=== PATIENT | male | born 1995 | race African-American/Black ===

== ENCOUNTER 2020-10-28 11:12 | Emergency (ER) | payer OTHER, SELFPAY ==
[2020-10-28 11:41] VITALS: BP 109/72; PULSE 76; RESP 18; TEMP 36.8; O2SAT 98; BMI 24.7
--- NOTE | 2020-10-28 12:49 | ED.GENADULT ---
HPI - General Adult General Chief complaint: General Medical Stated complaint: nausea Time Seen by Provider: 10/28/20 12:49 History of Present Illness HPI narrative: Patient complains of feeling anxious this morning and he felt a little nauseous with the mild headache that came on gradually and was not severe now he has no headache, no nausea and says he has been going through stressful situations as he from the mother of his 2 children, no suicidal or homicidal thoughts not hearing voices does not want harm himself, there is no abdominal pain no diarrhea no dysuria Related Data Previous Rx's Medication Instructions Recorded hydroxyzine HCl 25 mg tablet 25 mg PO TID PRN #14 tab 10/28/20 Allergies Allergy/AdvReac Type Severity Reaction Status Date / Time cat dander [CAT] Allergy Unknown PIMPLES Verified 10/28/20 11:40 dog dander [DOG] Allergy Unknown PIMPLES Unverified 11/28/19 16:57 SEASONAL ALLERGIES Allergy Unknown ITCHY EYES Uncoded 11/28/19 16:57 Review of Systems Review of Systems: Positive for anxiety, nausea and headache negatives are no fever no chills no dizziness no weakness no abrupt onset headache no vision change no photophobia no neck pain no stiff neck no cough no shortness of breath no sore throat no chest pain no abdominal pain no diarrhea no dysuria Yes all other systems are reviewed and are negative PMFSH Past Medical History Source: nursing notes reviewed Medical History (Updated 10/28/20 @ 12:54 by GILBERTO Reaevs) Asthma Social History Social History Advance Directives: No Advance Directives Information Provided: No Physical Exam Vital Signs: Vital Signs: Last Vital Signs Temp 98.3 F 10/28/20 11:41 Pulse 76 10/28/20 11:41 Resp 18 10/28/20 11:41 BP 109/72 10/28/20 11:41 Pulse Ox 98 10/28/20 11:41 Body Mass Index 24.7 General appearance is no acute distress Head is normocephalic atraumatic Pupils equal round reactive to light Extraocular motions are intact The neck is supple The pharynx is clear and well hydrated The chest is clear to auscultation bilateral no respiratory distress Heart no murmur Abdomen soft nontender Extremities full range of motion x4 Skin no rash Course Course Course Narrative: Patient's headache has resolved, he was able to tolerate p.o. here with no nausea or vomiting and for his anxiety I wrote a prescription for Atarax and recommended he follow with primary care doctor for possible regular treatment for anxiety Discharge Plan Discharge Clinical Impression: Anxiety Patient Disposition: Home, Self-Care Additional Instructions: You can use Atarax as needed for anxiety and it is okay if you are having trouble sleeping to double the dose at night and take 2 of them 50 mg Follow with primary doctor as there are other medications that are preventatives for anxiety Return to the ER any time for any worse condition or any concerns Prescriptions: New hydroxyzine HCl 25 mg tablet 25 mg PO TID PRN (Reason: anxiety) Qty: 14 RF: 0 Stand Alone Forms: Work/School Release
--- NOTE | 2020-10-28 13:01 | PC.NURSE ---
PT AWAKE, ALERT AND ORIENTED X 3. AMBULATORY INTO [facility], GAIT STEADY. SKIN WARM AND DRY. RESP UNLABORED. NO VOMITING NOTED PRESENTLY. TOLERATED PO WITHOUT DIFFICULTY. EVALUATED BY PROVIDER UPON ARRIVAL TO [facility] BED. GILBERTO BARTON DISCUSSED PLAN OF CARE WITH PATIENT AND PATIENT AGREEABLE. PLAN IS FOR DC HOME WIHT SCRIPT. PT TEXTING ON PHONE THROUGHOUT STAY. NO DISTRESS NOTED
== END 2020-10-28 13:04 | disposition home or self-care (01) ==
PROVIDERS: Emergency Provider Emergency Medicine; PCP Internal Medicine
DX: F41.1 Generalized anxiety disorder (principal); F43.0 Acute stress reaction; Z79.899 Other long term (current) drug therapy
CPT/HCPCS: 99283

== ENCOUNTER 2021-03-21 14:15 | Emergency (ER) | payer OTHER, SELFPAY ==
--- NOTE | ~2021-03-21 | XR_ITS ---
EXAMINATION: XR CHEST CLINICAL INFORMATION: SOB. COMPARISON: None TECHNIQUE: 2 views of the chest were obtained. FINDINGS: No significant abnormality is noted involving the heart, lungs, mediastinum, bony thorax or soft tissues. XR/XR chest 2V IMPRESSION: Unremarkable chest examination.
[2021-03-21 14:57] VITALS: BP 135/71; PULSE 90; RESP 18; TEMP 36.6; O2SAT 98; BMI 23.0
[2021-03-21 15:15] LABS: COVID-19 Test Positive (Negative)
--- NOTE | 2021-03-21 16:35 | ED.URI ---
HPI - URI/Sore Throat General Chief Complaint: Upper Respiratory Symptoms Stated Complaint: headache/cough Time Seen by Provider: 03/21/21 16:24 Source: patient Mode of arrival: ambulatory Limitations: no limitations History of Present Illness HPI Narrative: 25-year-old male with a past medical of his asthma presenting to the ED with COVID like symptoms that started at 03:00 which include subjective fevers, chills, sweats, intermittent headaches, sore throat, productive cough with clear color sputum, chest tightness and lower back pain. Denies recent travel or sick contacts. Reports he is not vaccinated to COVID. Reports that he works at [employer]. Denies any measured fevers, dizziness, neck pain/stiffness, trouble swallowing or breathing, dyspnea on exertion, orthopnea, palpitations, chest pain, nausea/vomiting/diarrhea constipation, abdominal pain, dysuria, hematuria, abnormal penile discharge, black or bloody stools, saddle anesthesias, weakness, urinary bowel incontinence or retention, IV drug use or any other symptoms complaints or concerns at this time. MD elicited complaint: cough, rhinorrhea and nasal congestion Onset (ago): day(s) (Since last night 03:00) Consistency: constant and progressively worsening Severity: mild Description of mucous: clear Able to tolerate fluids by mouth: Yes Exacerbating factors: nothing Relieving factors: nothing Associated symptoms: chills, myalgias, diaphoresis, headache, sore throat and cough Treatments prior to arrival: none Related Data Previous Rx's Medication Instructions Recorded hydroxyzine HCl 25 mg tablet 25 mg PO TID PRN #14 tab 10/28/20 albuterol sulfate 90 mcg/actuation 1 inh INHALATION QID PRN #8.5 g 03/21/21 aerosol inhaler azithromycin 250 mg tablet See Rx Instructions .ROUTE 03/21/21 .COMPLEX #6 tab codeine 10 mg-guaifenesin 100 mg/5 5 ml PO Q6H PRN #120 ml 03/21/21 mL oral liquid (Guaifenesin AC) prednisone 20 mg tablet 40 mg PO DAILY 5 Days #10 tab 03/21/21 Allergies Allergy/AdvReac Type Severity Reaction Status Date / Time cat dander [CAT] Allergy Unknown PIMPLES Verified 10/28/20 11:40 dog dander [DOG] Allergy Unknown PIMPLES Unverified 11/28/19 16:57 SEASONAL ALLERGIES Allergy Unknown ITCHY EYES Uncoded 11/28/19 16:57 Review of Systems Review of Systems: Constitutional : Positive subjective fever/chills/fatigue/malaise/sweats, No Weight loss ENT/Mouth : Positive sore throat, No Hearing loss, No Ear Pain, No Nasal Congestion, No Sinus Pain, No Hoarseness, No Rhinorrhea, No Swallowing Difficulty Eyes: No Eye Pain, No Swelling, No Redness, No Foreign Body, No Discharge, No Vision Changes Cardiovascular : No Chest Pain, No SOB, No Dyspnea on Exertion, No Orthopnea, No Edema, No Palpitations Respiratory : Positive Cough, positive Sputum, No Wheezing, No Smoke Exposure, No Dyspnea Gastrointestinal : No Nausea, No Vomiting, No Diarrhea, No Constipation, No abdominal Pain, No Hematochezia, No Melena Genitourinary : no irregular bleeding, No Dysuria, No Urinary Frequency, No Hematuria, No Urinary Incontinence, No Urgency, No Flank Pain, No Urinary Flow Changes, No Hesitancy Musculoskeletal : No joint pain, positive Myalgias, No Joint Swelling Skin : No Skin Lesions, No rash Neuro : No Weakness, No Numbness, No Paresthesias, No Loss of Consciousness, No Dizziness, No Headache Psych : No Anxiety/Panic, No Depression, No SI/HI/AH/VH, No Social Issues, Heme/Lymph: No Bruising, No Bleeding,No Lymphadenopathy Endocrine : No Polyuria, No Polydipsia, No Temperature Intolerance Yes all other systems are reviewed and are negative [facility] Past Medical History Attestation statement: The following information was validated with the patient. Medical History Asthma Physical Exam Vital Signs: Vital Signs: Last Vital Signs Temp 97.9 F 03/21/21 14:57 Pulse 90 03/21/21 14:57 Resp 18 03/21/21 14:57 BP 135/71 03/21/21 14:57 Pulse Ox 98 03/21/21 14:57 BMI result Body Mass Index 23.0 vital signs have been reviewed as normal and appeared to be correct. Blood pressure normal. Heart rate normal. Respiration rate normal. Temperature normal. Oxygen saturation normal. Appearance: Alert. Oriented X3. No acute distress. Head: Normal external exam. Normocephalic. Atraumatic. Eyes: PERRLA. EOMI. Conjunctiva and sclera normal. Eyelids normal. ENT: EAC normal. TM's Normal. Pharynx normal. Uvula midline. Moist mucous membranes. No trismus noted. No drooling noted. No muffled voice noted. Neck: Normal inspection. Neck supple. FROM. No adenopathy. Thyroid Normal. No meningeal signs. No neck mass noted. CVS: Normal heart rate and rhythm. Heart sound normal. Pulses normal throughout. No murmurs/rales/gallops. Respiratory: No respiratory distress. Painless inspiration. Breath sounds normal. No wheezes/rales/rhonchi noted. Chest nontender. No accessory muscle usage noted or decreased air movement noted. Abdomen: Soft and nontender. Bowel sounds normal in all 4 quadrants. No distention noted. No organomegaly noted. No visible injury noted. Back: No CVA tenderness. Full range of motion noted. No rashes/lesion/induration/fluctuance or signs of infection noted. Skin: Skin warm and dry. Normal skin color. Normal skin turgor. No rashes/lesions/lacerations noted. Extremities: No lower extremity edema. No calf tenderness noted. Extremities exhibit normal range of motion. Extremities nontender. Neuro: Oriented X 3. No motor deficit. No sensory deficit. Reflexes normal. Normal steady gait. No focal neuro deficits noted. Vascular: + radial pulses/+ 2 distal pedal pulses/+2 dorsalis pedis b/l. Normal cap refill. No cyanosis noted to upper extremity nails and lower extremity toes nails. Course Course Course Narrative: 25-year-old male with a past medical of his asthma presenting to the ED with COVID like symptoms that started at 03:00 which include subjective fevers, chills, sweats, intermittent headaches, sore throat, productive cough with clear color sputum, chest tightness and lower back pain. Denies recent travel or sick contacts. Reports he is not vaccinated to COVID. Reports that he works at [employer]. Denies any measured fevers, dizziness, neck pain/stiffness, trouble swallowing or breathing, dyspnea on exertion, orthopnea, palpitations, chest pain, nausea/vomiting/diarrhea constipation, abdominal pain, dysuria, hematuria, abnormal penile discharge, black or bloody stools, saddle anesthesias, weakness, urinary bowel incontinence or retention, IV drug use or any other symptoms complaints or concerns at this time. Patient positive for COVID. Negative for pneumonia. Lungs are clear to auscultation. No additional labs or imaging indicated at this time. Will DC home with symptomatic treatment instructions to self isolate per CDC guidelines return if any new or worsening symptoms to follow up with primary care provider. Patient understands agrees with this plan. MDM - URI/Sore Throat Medical Records Attestation: I reviewed the patient's medical records. Lab Data Attestation: I reviewed the patient's lab results. Labs: Lab Results 03/21/21 Range/Units 15:02 COVID-19 (DEBBIE) Positive A (Negative) COVID-19 Clin Com See Note Imaging Data Chest x-ray: Attestation: I personally reviewed and interpreted this imaging study as follows: Radiologist's impression: FINDINGS: No significant abnormality is noted involving the heart, lungs, mediastinum, bony thorax or soft tissues. XR/XR chest 2V IMPRESSION: Unremarkable chest examination. Discharge Plan Discharge Clinical Impression: COVID-19 Patient Disposition: Home, Self-Care Instructions: COVID-19 (Coronavirus Disease 2019) (ED) Additional Instructions: Please follow CDC guidelines for COVID 19 restrictions/quarantine Prescriptions: New albuterol sulfate 90 mcg/actuation HFA aerosol inhaler 1 inh inhalation QID PRN (Reason: shortness of breath or wheezing) Qty: 8.5 RF: 0 azithromycin 250 mg tablet See Rx Instructions .ROUTE .COMPLEX Qty: 6 RF: 0 codeine-guaifenesin [Guaifenesin AC] 10-100 mg/5 mL liquid 5 ml PO Q6H PRN (Reason: cold symptoms) Qty: 120 RF: 0 prednisone 20 mg tablet 40 mg PO DAILY 5 Days Qty: 10 RF: 0 No Action hydroxyzine HCl 25 mg tablet 25 mg PO TID PRN (Reason: anxiety) Qty: 14 RF: 0 Referrals: Freddy Stevenson MD [Primary Care Provider] - 2 days Stand Alone Forms: Work/School Release Print Language: Bahamian
== END 2021-03-21 17:11 | disposition home or self-care (01) ==
LOC: HO.ED 16:46
PROVIDERS: Emergency Provider Emergency Medicine; PCP Internal Medicine
DX: U07.1 COVID-19 (principal); J45.909 Unspecified asthma, uncomplicated; R50.9 Fever, unspecified; M79.10 Myalgia, unspecified site
CPT/HCPCS: 71046; 87635; 99283

== ENCOUNTER 2021-08-16 07:18 | Emergency (ER) | payer OTHER, SELFPAY ==
--- NOTE | ~2021-08-16 | XR_ITS ---
EXAMINATION: XR CHEST CLINICAL INFORMATION: Shortness of breath COMPARISON: Chest x-ray 03/21/2021 TECHNIQUE: Frontal view of the chest was obtained. FINDINGS: Cardiac silhouette is normal in size. The lungs are well aerated. There is no lobar consolidation. No pleural effusion or pneumothorax. No gross osseous abnormality. XR/XR chest 1V IMPRESSION: No acute pulmonary pathology.
[2021-08-16 07:20] VITALS: BP 119/76; PULSE 72; RESP 18; TEMP 36.6; O2SAT 96; BMI 21.9
[2021-08-16 07:50] LABS: COVID-19 Test Negative (Negative); IDNOW Serial# 9DB6401D; Influenza A Negative (Negative); Influenza B2 Negative (Negative)
--- NOTE | 2021-08-16 08:05 | ED.ASTHMA ---
HPI - Asthma General Chief Complaint: Upper Respiratory Symptoms Stated Complaint: difficulty breathing Time Seen by Provider: 08/16/21 08:05 Source: patient Mode of arrival: ambulatory History of Present Illness HPI Narrative: 25-year-old male with history of asthma comes in for increasing shortness of breath and chest tightness and stating that he has run out of his medication. He denies having of primary care provider and denies any associated fever, chills, sore throat. Related Data Previous Rx's Medication Instructions Recorded hydroxyzine HCl 25 mg tablet 25 mg PO TID PRN #14 tab 10/28/20 albuterol sulfate 90 mcg/actuation 1 inh INHALATION QID PRN #8.5 g 03/21/21 aerosol inhaler azithromycin 250 mg tablet See Rx Instructions .ROUTE 03/21/21 .COMPLEX #6 tab codeine 10 mg-guaifenesin 100 mg/5 5 ml PO Q6H PRN #120 ml 03/21/21 mL oral liquid (Guaifenesin AC) prednisone 20 mg tablet 40 mg PO DAILY 5 Days #10 tab 03/21/21 albuterol sulfate 90 mcg/actuation 2 puff INHALATION Q4-6H PRN #8.5 g 08/16/21 aerosol inhaler (Ventolin HFA) prednisone 50 mg tablet 50 mg PO DAILY 4 Days #4 tab 08/16/21 Allergies Allergy/AdvReac Type Severity Reaction Status Date / Time cat dander [CAT] Allergy Unknown PIMPLES Verified 10/28/20 11:40 dog dander [DOG] Allergy Unknown PIMPLES Unverified 11/28/19 16:57 SEASONAL ALLERGIES Allergy Unknown ITCHY EYES Uncoded 11/28/19 16:57 Review of Systems Review of Systems: Pertinent positives and negatives as stated in HPI 10 point review of systems is otherwise negative. [facility] Past Medical History Source: nursing notes reviewed Medical History Asthma Social History Social History Advance Directives: No Advance Directives Information Provided: No Physical Exam Vital Signs: Vital Signs: Last Vital Signs Temp 97.9 F 08/16/21 07:20 Pulse 72 08/16/21 07:20 Resp 18 08/16/21 07:20 BP 119/76 08/16/21 07:20 Pulse Ox 96 08/16/21 07:20 BMI result Body Mass Index 21.9 VITAL SIGNS: Reviewed. GENERAL: Well developed, well nourished, in no acute distress. HEAD: Normocephalic/atraumatic EYES: PERRLA, EOMI EARS: Ext canals without abnormality, TMs non-bulging and non-erythematous NOSE: Nares patent bilateral OROPHARYNX: no oral lesions noted, posterior pharynx clear and non-erythematous without noted tonsillar enlargement/erythema/exudates NECK: Supple, no adenopathy LUNGS: Normal breath sounds, no significant expiratory wheeze, no tachypnea. SpO2<96> CARDIOVASCULAR: Regular rate and rhythm without noted murmurs ABDOMEN: Soft, non-tender, non-distended with bowel sounds. MUSCULOSKELETAL: No tenderness, deformities, or effusions noted on gross inspection. EXTREMITIES: No cyanosis, clubbing or edema. SKIN: Inspection of the skin reveals no rashes NEUROLOGIC: Alert and oriented x 4. Strength and sensation to light touch were grossly intact x 4. Course Course Course Narrative: 25-year-old male with history and clinical presentation consistent with minimal asthma exacerbation, no expiratory wheeze noted with good auscultated breath sounds, no tachypnea or increased work of breathing patient will receive albuterol inhaler as well as starting on a short course of steroids. Review of all investigations is otherwise negative. MDM - Asthma Lab Data Labs: Lab Results 08/16/21 08/16/21 Range/Units 07:26 07:26 COVID-19 (DEBBIE) Negative (Negative) COVID-19 Clin Com See Note Influenza Type A (ORAL) Negative (Negative) Influenza Type B (ORAL) Negative (Negative) Influenza A & B Note See Note Discharge Plan Discharge Clinical Impression: Asthma Patient Disposition: Home, Self-Care Instructions: Asthma (ED) Additional Instructions: 1. Increase use of your albuterol inhaler over the next 24 hours in complete the course of steroids that you have been prescribed. 2. Try to limit the amount marijuana inhalation during the times at your asthma is especially bothersome. 3. Additional medication has been sent to your pharmacy, but you should establish care with a primary care provider. Return to the ER for worsening symptoms. Prescriptions: New albuterol sulfate [Ventolin HFA] 90 mcg/actuation HFA aerosol inhaler 2 puff inhalation Q4-6H PRN (Reason: shortness of breath or wheezing) Qty: 8.5 0RF prednisone 50 mg tablet 50 mg PO DAILY 4 Days Qty: 4 0RF No Action hydroxyzine HCl 25 mg tablet 25 mg PO TID PRN (Reason: anxiety) Qty: 14 0RF Rx Instructions: This medication may cause drowsiness or use with caution albuterol sulfate 90 mcg/actuation HFA aerosol inhaler 1 inh inhalation QID PRN (Reason: shortness of breath or wheezing) Qty: 8.5 0RF azithromycin 250 mg tablet See Rx Instructions .ROUTE .COMPLEX Qty: 6 0RF Rx Instructions: take 500 mg today (day 1), then 250 mg for 4 days (days 2-5) codeine-guaifenesin [Guaifenesin AC] 10-100 mg/5 mL liquid 5 ml PO Q6H PRN (Reason: cold symptoms) Qty: 120 0RF prednisone 20 mg tablet 40 mg PO DAILY 5 Days Qty: 10 0RF Referrals: Freddy Stevenson MD [Primary Care Provider] -
[2021-08-16] MEDS: predniSONE 10 MG TABLET 50 MG PO (08:36)
[2021-08-16] MEDS: Albuterol Sulfate 90 MCG 8 GM INHALER 4 PUFF INHALE (08:37)
== END 2021-08-16 08:41 | disposition home or self-care (01) ==
PROVIDERS: Emergency Provider Student in an Organized Health Care Education/Training Program; PCP Internal Medicine
DX: J45.909 Unspecified asthma, uncomplicated (principal); Z20.822 Contact with and (suspected) exposure to COVID-19
CPT/HCPCS: 71045; 87502; 87635; 99282; 99283

== ENCOUNTER 2021-09-17 23:18 | Emergency (ER) | payer OTHER, SELFPAY | END 2021-09-18 00:41 | disposition left against medical advice (07) | PROVIDERS: Emergency Provider Emergency Medicine; PCP Internal Medicine | DX: R06.02 Shortness of breath (principal); R07.9 Chest pain, unspecified ==

== ENCOUNTER 2021-11-18 05:22 | Emergency (ER) | payer OTHER, SELFPAY ==
--- NOTE | ~2021-11-18 | XR_ITS ---
EXAMINATION: XR CHEST CLINICAL INFORMATION: Chest pain with inspiration COMPARISON: 08/16/2021 TECHNIQUE: Frontal view of the chest was obtained. FINDINGS: The lungs are well expanded. There is no focal consolidation, edema, or effusion. No pneumothorax. The cardiomediastinal silhouette is within normal limits. No acute osseous abnormality. XR/XR chest 1V IMPRESSION: Clear lungs.
[2021-11-18 05:52] VITALS: BP 143/75; PULSE 89; RESP 18; TEMP 36.7; O2SAT 97; BMI 23.1
[2021-11-18 06:10] VITALS: BP 122/69; PULSE 78; RESP 16; TEMP 36.8; O2SAT 98
[2021-11-18 06:31] LABS: Hematocrit 41.8 % (42.0-52.0); Hemoglobin 13.7 g/dl (14.0-18.0); Mean Corpuscular HGB Conc 32.8 g/dl (31.0-36.0); Mean Corpuscular Hemoglobin 25.9 pg (27.0-33.0); Mean Corpuscular Volume 79.2 fL (80.0-98.0); Mean Platelet Volume 10.3 fL (9.4-12.4); Platelet Count 247 X10*3/uL (160-400); Red Blood Count 5.28 X10*6/uL (4.60-5.80); Red Cell Distribution Width 13.5 % (11.0-16.0); White Blood Count 5.5 X10*3/uL (4.8-10.8)
[2021-11-18 06:38] VITALS: PULSE 79
[2021-11-18 06:40] LABS: COVID-19 Test Negative (Negative); IDNOW Serial# 16C4AD1C
[2021-11-18 06:55] LABS: Troponin-I High Sensitivity < 3.5 ng/L (<3.5-35.0)
[2021-11-18 06:56] LABS: Alanine Aminotransferase 15 U/L (0-40); Albumin Level 4.1 g/dL (3.5-5.0); Alkaline Phosphatase 49 U/L (39-117); Anion Gap 14 (12-20); Aspartate Amino Transferase 16 U/L (5-37); Bilirubin Total 0.2 mg/dL (0.0-1.0); Blood Urea Nitrogen 16 mg/dL (9-16); Calcium 9.1 mg/dL (8.4-10.2); Carbon Dioxide 23 mmol/L (22-29); Chloride 109 mmol/L (96-108); Creatinine Clr Calc Pharmacy 106.5; Estimated Glomerular Filt Rate > 60; Glucose Random 110 mg/dL (60-115); Potassium 3.7 mmol/L (3.3-5.1); Sodium 142 mmol/L (135-145); Total Protein 6.7 g/dL (6.5-8.0)
[2021-11-18 07:11] VITALS: BP 110/61; PULSE 78; RESP 14; TEMP 36.6; O2SAT 98
--- NOTE | 2021-11-18 07:29 | ED_ITS ---
HPI - URI/Sore Throat General Chief Complaint: Upper Respiratory Symptoms Stated Complaint: Asthma/Chest tightness Time Seen by Provider: 11/18/21 07:19 Source: patient Mode of arrival: ambulatory Limitations: no limitations History of Present Illness HPI Narrative: 26-year-old male who presents emergency department for evaluation of an asthma exacerbation. The patient states that last night around 23:00 hours he developed sharp pain in his chest, shortness of breath and wheezing. He states that he used his albuterol inhaler several times with some improvement but he then ran out of his inhaler. His shortness of breath got worse therefore came to the emergency department. Patient points to his anterior chest when asked to localize the chest pain. He describes as a sharp pain which is worse with breat mehdi. The pain was 8/10 at its worse but is 5/10 at the time my evaluation. The patient denied fever, chills, rhinorrhea, sore throat, cough, nausea, vomiting or diarrhea. Denies myalgias arthralgias. He did take a home COVID-19 test which was negative. MD elicited complaint: other (Chest pain) Pertinent past history: asthma Onset (ago): hour(s) (Onset 23:00 hours (8 hours prior to evaluation)) Consistency: intermittent Severity: severe Pain scale (0-10): 7 Able to tolerate fluids by mouth: Yes Exacerbating factors: deep breaths Relieving factors: nothing Associated symptoms: shortness of breath Treatments prior to arrival: other (Albuterol inhaler) Related Data Previous Rx's Medication Instructions Recorded hydroxyzine HCl 25 mg tablet 25 mg PO TID PRN anxiety #14 tabs 10/28/20 albuterol sulfate 90 mcg/actuation 1 inh inhalation QID PRN shortness 03/21/21 aerosol inhaler of breath or wheezing #8.5 grams azithromycin 250 mg tablet See Rx Instructions PO .COMPLEX #6 03/21/21 tabs codeine 10 mg-guaifenesin 100 mg/5 5 ml PO Q6H PRN cold symptoms #120 03/21/21 mL oral liquid (Guaifenesin AC) mL prednisone 20 mg tablet 40 mg PO DAILY rash 5 days #10 tabs 03/21/21 albuterol sulfate 90 mcg/actuation 2 puff inhalation Q4-6H PRN 08/16/21 aerosol inhaler (Ventolin HFA) shortness of breath or wheezing #8.5 grams prednisone 50 mg tablet 50 mg PO DAILY 4 days #4 tabs 08/16/21 albuterol sulfate 90 mcg/actuation 2 puff inhalation Q4-6H PRN 11/18/21 aerosol inhaler (ProAir HFA) shortness of breath or wheezing #8.5 grams prednisone 20 mg tablet 60 mg PO DAILY 5 days #15 tabs 11/18/21 Allergies Allergy/AdvReac Type Severity Reaction Status Date / Time cat dander [CAT] Allergy Unknown PIMPLES Verified 10/28/20 11:40 dog dander [DOG] Allergy Unknown PIMPLES Unverified 11/28/19 16:57 SEASONAL ALLERGIES Allergy Unknown ITCHY EYES Uncoded 11/28/19 16:57 Review of Systems Review of Systems: Yes all other systems are reviewed and are negative [facility] Past Medical History [facility] Narrative: Social history: The patient smokes 1 pack of cigarettes per day x6 years. He denies drug use. He does drink alcohol he states he was drinking alcohol last night. Medical History Asthma Social History Social History Alcohol intake: current Alcohol intake frequency: a few times a week Patient Tobacco Use Status: Current everyday Tobacco user Use of substances other than those prescribed or required for medical reasons: No Advance Directives: No Advance Directives Information Provided: Yes Physical Exam Vital Signs: Vital Signs: Last Vital Signs Temp 97.9 F 11/18/21 07:11 Pulse 78 11/18/21 07:11 Resp 14 11/18/21 07:11 BP 110/61 11/18/21 07:11 Pulse Ox 98 11/18/21 07:11 O2 Del Method 11/18/21 07:11 BMI result Body Mass Index 23.1 Const: General: cooperative and no acute distress Orientation/consciousness: oriented to person and oriented to place Limitations: no limitations HEENT: Head: Yes normal to inspection, Yes normocephalic and Yes atraumatic Ears: external ears normal General nose exam: Normal external nose present Face and sinus: Yes normal facial exam Mouth: Normal oral and palatal mucosa present Throat: Yes posterior oropharynx normal Eyes: General: appearance normal, both eyes and all related structures Pupils: Equal, round and reactive pupils present Neck: Neck: Yes normal visual inspection, Yes no lymphadenopathy, Yes trachea midline and Yes supple Chest: Chest palpation & inspection: normal inspection of the chest and normal palpation of entire chest wall Resp: Effort & Inspection: normal respiratory effort and able to speak in complete sentences Auscultation: wheezes (Diffuse) Cardio: Rate: regular rate Rhythm: regular rhythm Heart sounds: S1 normal heart sound present, S2 normal heart sound present and no murmurs GI: Inspection: Yes normal to inspection Palpation (GI): Soft to palpation, nontender and no guarding Auscultation: normal bowel sounds : General: Yes no CVA tenderness Back/Spine/Pelvis: Back: no CVA tenderness Skin: General skin exam: no rashes or lesions noted Neuro: General: oriented to person and oriented to place Cranial nerves: Yes CN's II-XII intact bilaterally and Yes Equal, round and reactive pupils present Cognition (Neuro): normal cognition Motor exam (neuro): 5/5 motor strength present throughout Extrem: General: Yes normal to inspection Psych: Appearance: grossly normal Speech and movement: Normal speech and movement present Affect: normal affect Attitude: cooperative Thought process: Normal thought process present Thought content: Normal thought content present Course Course Course Narrative: 26-year-old male who presents emergency department for evaluation of shortness of breath and pleuritic chest pain which began last night at 23:00 hours. The patient's presentation and findings are consistent with an acute asthma exacerbation. Patient did have wheezing on his lung exam and was ordered to get an albuterol nebulizer. He is also ordered to get prednisone 60 mg orally. Patient had a lab included a CBC, CMP and COVID-19 test. These were unremarkable. Chest x-ray was also normal. Patient was given prescription for albuterol inhaler and a 5 day course of prednisone 60 mg once a day. He was given printed and verbal instructions and discharged home. MDM - URI/Sore Throat Lab Data Result diagrams: 11/18/21 06:21 11/18/21 06:21 Labs: Lab Results 11/18/21 11/18/21 11/18/21 Range/Units 06:21 06:21 06:21 WBC 5.5 (4.8-10.8) X10*3/uL RBC 5.28 (4.60-5.80) X10*6/uL Hgb 13.7 L (14.0-18.0) g/dl Hct 41.8 L (42.0-52.0) % MCV 79.2 L (80.0-98.0) fL MCH 25.9 L (27.0-33.0) pg MCHC 32.8 (31.0-36.0) g/dl RDW 13.5 (11.0-16.0) % Plt Count 247 (160-400) X10*3/uL MPV 10.3 (9.4-12.4) fL Absolute Nucleated RBC 0.000 (0.0-0.012) X10*3/uL Nucleated RBC % (auto) 0.0 (0.0-0.2) /100WBC Sodium 142 (135-145) mmol/L Potassium 3.7 (3.3-5.1) mmol/L Chloride 109 H (96-108) mmol/L Carbon Dioxide 23 (22-29) mmol/L Anion Gap 14 (12-20) BUN 16 (9-16) mg/dL Creatinine 0.86 (0.5-1.4) mg/dL Estim Creat Clear Calc 106.5 Estimated GFR > 60 Random Glucose 110 (60-115) mg/dL Calcium 9.1 (8.4-10.2) mg/dL Total Bilirubin 0.2 (0.0-1.0) mg/dL AST 16 (5-37) U/L ALT 15 (0-40) U/L Alkaline Phosphatase 49 (39-117) U/L Troponin I High Sens (<3.5-35.0) ng/L Total Protein 6.7 (6.5-8.0) g/dL Albumin 4.1 (3.5-5.0) g/dL COVID-19 (DEBBIE) Negative (Negative) COVID-19 Clin Com See Note 11/18/21 Range/Units 06:21 WBC (4.8-10.8) X10*3/uL RBC (4.60-5.80) X10*6/uL Hgb (14.0-18.0) g/dl Hct (42.0-52.0) % MCV (80.0-98.0) fL MCH (27.0-33.0) pg MCHC (31.0-36.0) g/dl RDW (11.0-16.0) % Plt Count (160-400) X10*3/uL MPV (9.4-12.4) fL Absolute Nucleated RBC (0.0-0.012) X10*3/uL Nucleated RBC % (auto) (0.0-0.2) /100WBC Sodium (135-145) mmol/L Potassium (3.3-5.1) mmol/L Chloride (96-108) mmol/L Carbon Dioxide (22-29) mmol/L Anion Gap (12-20) BUN (9-16) mg/dL Creatinine (0.5-1.4) mg/dL Estim Creat Clear Calc Estimated GFR Random Glucose (60-115) mg/dL Calcium (8.4-10.2) mg/dL Total Bilirubin (0.0-1.0) mg/dL AST (5-37) U/L ALT (0-40) U/L Alkaline Phosphatase (39-117) U/L Troponin I High Sens < 3.5 (<3.5-35.0) ng/L Total Protein (6.5-8.0) g/dL Albumin (3.5-5.0) g/dL COVID-19 ([facility]BBIE) (Negative) COVID-19 Clin Com Discharge Plan Discharge Clinical Impression: Asthma Qualifiers: Asthma severity: moderate Asthma persistence: unspecified Asthma complication type: with acute exacerbation Qualified Code(s): J45.901 - Unspecified asthma with (acute) exacerbation Chest pain Qualifiers: Chest pain type: unspecified Qualified Code(s): R07.9 - Chest pain, unspecified Patient Disposition: Home, Self-Care Instructions: Asthma (ED) Prescriptions: New prednisone 20 mg tablet 60 mg PO DAILY 5 Days Qty: 15 0RF albuterol sulfate [ProAir HFA] 90 mcg/actuation HFA aerosol inhaler 2 puff inhalation Q4-6H PRN (Reason: shortness of breath or wheezing) Qty: 8.5 0RF No Action hydroxyzine HCl 25 mg tablet 25 mg PO TID PRN (Reason: anxiety) Qty: 14 0RF Rx Instructions: This medication may cause drowsiness or use with caution albuterol sulfate 90 mcg/actuation HFA aerosol inhaler 1 inh inhalation QID PRN (Reason: shortness of breath or wheezing) Qty: 8.5 0RF azithromycin 250 mg tablet See Rx Instructions .ROUTE .COMPLEX Qty: 6 0RF Rx Instructions: take 500 mg today (day 1), then 250 mg for 4 days (days 2-5) codeine-guaifenesin [Guaifenesin AC] 10-100 mg/5 mL liquid 5 ml PO Q6H PRN (Reason: cold symptoms) Qty: 120 0RF prednisone 20 mg tablet 40 mg PO DAILY 5 Days Qty: 10 0RF albuterol sulfate [Ventolin HFA] 90 mcg/actuation HFA aerosol inhaler 2 puff inhalation Q4-6H PRN (Reason: shortness of breath or wheezing) Qty: 8.5 0RF prednisone 50 mg tablet 50 mg PO DAILY 4 Days Qty: 4 0RF
--- NOTE | 2021-11-18 07:44 | PC.NURSE ---
pt is a/o x 3 no sob/antelmo noted skin pink warm dry speaks in full sentences. lungs - diminished all lobes. speaks in full sentences. aware.
[2021-11-18] MEDS: predniSONE 20 MG TABLET 60 MG PO (07:58)
[2021-11-18] MEDS: Albuterol Sulfate (0.083%) 2.5 MG/3 ML VIAL.NEB INHALE (08:07)
[2021-11-18 08:08] VITALS: PULSE 81; RESP 16; O2SAT 98
--- NOTE | 2021-11-18 10:11 | ECG_ITS ---
Test Reason : ASTHMA Blood Pressure : / mmHG Vent. Rate : 087 BPM Atrial Rate : 087 BPM P-R Int : 172 ms QRS Dur : 126 ms QT Int : 362 ms P-R-T Axes : 069 035 045 degrees QTc Int : 435 ms Normal sinus rhythm Right bundle branch block Abnormal ECG When compared with ECG of 29-SEP-2018 10:39, No significant change was found Referred By: Maurice Sanchez Electronically Signed By:MAXX HOOPER
== END 2021-11-18 08:25 | disposition home or self-care (01) ==
PROVIDERS: Emergency Provider Emergency Medicine Emergency Medical Services; PCP Internal Medicine
DX: J45.901 Unspecified asthma with (acute) exacerbation (principal); R07.89 Other chest pain; R06.02 Shortness of breath; Z20.822 Contact with and (suspected) exposure to COVID-19; Z79.899 Other long term (current) drug therapy
CPT/HCPCS: 36415; 71045; 80053; 84484; 85027; 87635; 93005; 94640; 99284; 99285

== ENCOUNTER 2022-08-18 12:18 | Emergency (ER) | payer OTHER, SELFPAY ==
[2022-08-18 12:28] VITALS: BP 108/66; PULSE 63; RESP 16; TEMP 35.8; O2SAT 97; BMI 21.7
--- NOTE | 2022-08-18 12:29 | ED.GENADULT ---
HPI - General Adult General Chief complaint: Abdominal Pain Stated complaint: Nausea Weakness Time Seen by Provider: 08/18/22 13:45 Source: patient Mode of arrival: ambulatory Limitations: no limitations History of Present Illness HPI narrative: 26-year-old male presents emergency department complaining of nausea. Patient states he does not have any more nausea but does have some mid abdominal pain. Patient has not vomited patient is a falls or injuries in his cough or fever. Patient was seen in triage had labs done which were all unremarkable. Related Data Previous Rx's Medication Instructions Recorded hydroxyzine HCl 25 mg tablet 25 mg PO TID PRN anxiety #14 tabs 10/28/20 albuterol sulfate 90 mcg/actuation 1 inh inhalation QID PRN shortness 03/21/21 aerosol inhaler of breath or wheezing #8.5 grams azithromycin 250 mg tablet See Rx Instructions PO .COMPLEX #6 03/21/21 tabs codeine 10 mg-guaifenesin 100 mg/5 5 ml PO Q6H PRN cold symptoms #120 03/21/21 mL oral liquid (Guaifenesin AC) mL prednisone 20 mg tablet 40 mg PO DAILY rash 5 days #10 tabs 03/21/21 albuterol sulfate 90 mcg/actuation 2 puff inhalation Q4-6H PRN 08/16/21 aerosol inhaler (Ventolin HFA) shortness of breath or wheezing #8.5 grams prednisone 50 mg tablet 50 mg PO DAILY 4 days #4 tabs 08/16/21 albuterol sulfate 90 mcg/actuation 2 puff inhalation Q4-6H PRN 11/18/21 aerosol inhaler (ProAir HFA) shortness of breath or wheezing #8.5 grams prednisone 20 mg tablet 60 mg PO DAILY 5 days #15 tabs 11/18/21 famotidine 20 mg tablet (Pepcid) 20 mg PO BID PRN epigastric pain 08/18/22 #60 tabs ondansetron 4 mg disintegrating 4 mg PO Q6H #14 tabs 08/18/22 tablet Allergies Allergy/AdvReac Type Severity Reaction Status Date / Time cat dander [CAT] Allergy Unknown PIMPLES Verified 08/18/22 12:28 dog dander [DOG] Allergy Unknown PIMPLES Verified 08/18/22 12:28 SEASONAL ALLERGIES Allergy Unknown ITCHY EYES Uncoded 11/28/19 16:57 Review of Systems Review of Systems: Review of systems: General: Patient denies any fever chills recent illness or falls Musculoskeletal: Denies back pain or body aches or other injuries HEENT: denies headache, runny nose, ear pain Respiratory: denies shortness of breath, cough Cardiovascular: no chest pain or palpitations : denies dysuria, frequency Abdomen: nausea no vomiting denies abdominal pain Extremities: no swelling, no pain Skin: no diaphoresis Yes all other systems are reviewed and are negative PMFSH Past Medical History Medical History Asthma Social History Social History Alcohol intake: current Alcohol intake frequency: a few times a month Patient Tobacco Use Status: Current everyday Tobacco user Smoked in Last 30 Days: Yes Use of substances other than those prescribed or required for medical reasons: No Advance Directives: No Advance Directives Information Provided: No Physical Exam ED Vital Signs: Vital Signs - 24 hr 08/18/22 12:28 Temperature 96.4 F L Pulse Rate 63 Respiratory Rate 16 Blood Pressure 108/66 Pulse Oximetry 97 Oxygen Delivery Method Room Air BMI result Body Mass Index 21.7 General: Well-appearing well-nourished in no signs of distress HEENT: Normocephalic atraumatic Neck: No signs of JVD, no masses no tenderness or lymphadenopathy Cardiovascular: Regular rate and rhythm Respiratory: Clear to auscultation bilaterally Abdomen: Soft nontender no masses Extremities: Normal pedal pulses no signs of edema Skin: Dry warm no rashes Back: No tenderness full ROM Medical Decision Making Medical Decision Making [facility] Narrative: 26 year old male presents for evaluation of abdominal pain and nausea, though he states the nausea has since improved is exam is unremarkable the focal tubal sending the patient home. His Differential Diagnosis Differential Diagnoses: The differential diagnosis associated with the presentation includes Abdominal pain gastritis GI illness Admission/Observation Consideration of admission/observation: Escalation of care including admission/observation considered Not warranted Lab Data [facility] Lab Attestation statement: I reviewed the patient's lab results. 08/18/22 12:45 08/18/22 12:45 Labs: Lab Results 08/18/22 08/18/22 Range/Units 12:45 12:45 WBC 5.8 (4.8-10.8) X10*3/uL RBC 5.54 (4.60-5.80) X10*6/uL Hgb 14.5 (14.0-18.0) g/dl Hct 44.3 (42.0-52.0) % MCV 80.0 (80.0-98.0) fL MCH 26.2 L (27.0-33.0) pg MCHC 32.7 (31.0-36.0) g/dl RDW 13.4 (11.0-16.0) % Plt Count 231 (160-400) X10*3/uL MPV 10.3 (9.4-12.4) fL Immature Gran % (Auto) 0.2 (0.0-0.4) % Neut % (Auto) 59.6 (45-73) % Lymph % (Auto) 28.1 (20-40) % Parker % (Auto) 8.1 (2-11) % Eos % (Auto) 3.8 (0-4) % Baso % (Auto) 0.2 (0-2) % Lymph # (Auto) 1.6 (1.2-4.9) X10*3/uL Parker # (Auto) 0.5 (0.1-1.2) X10*3/uL Eos # (Auto) 0.2 (0.0-0.4) X10*3/uL Baso # (Auto) 0.0 (0.0-0.2) X10*3/uL Abs Immat Gran (auto) 0.01 (0.00-0.03) X10*3/uL Absolute Neuts (auto) 3.5 (2.0-8.3) x10*3/uL Absolute Nucleated RBC 0.000 (0.0-0.012) X10*3/uL Nucleated RBC % (auto) 0.0 (0.0-0.2) /100WBC Sodium 141 (135-145) mmol/L Potassium 4.4 (3.3-5.1) mmol/L Chloride 110 H (96-108) mmol/L Carbon Dioxide 26 (22-29) mmol/L Anion Gap 9 L (12-20) BUN 15 (9-16) mg/dL Creatinine 0.95 (0.5-1.4) mg/dL Estim Creat Clear Calc 94.1 Estimated GFR > 60 Random Glucose 84 (60-115) mg/dL Calcium 9.8 D (8.4-10.2) mg/dL Total Bilirubin 0.8 (0.0-1.0) mg/dL AST 15 (5-37) U/L ALT 12 (0-40) U/L Alkaline Phosphatase 50 (39-117) U/L Total Protein 7.0 (6.5-8.0) g/dL Albumin 4.4 (3.5-5.0) g/dL Lipase 15 (8-78) U/L External Record Review External record reviewed: Inpatient record Patient has been here for his asthma or anxiety in the past. Tests considered The following testing was considered but not selected: CT scan is not warranted patient has completely benign abdomen sending the patient home I will give him some Maalox Pepcid and Zofran. Social Determinants Patient?s care significantly limited by Social Determinants of Health including: Problems related to primary support group Discharge Plan Discharge Clinical Impression: Abdominal pain, Nausea Patient Disposition: Home, Self-Care Instructions: Acute Nausea and Vomiting (ED), Abdominal Pain (ED) Additional Instructions: You were seen today in the emergency department for abdominal pain and nausea. You had labs done which were all unremarkable including your liver function kidney function electrolytes and you have no signs of anemia or signs infection. Please call follow-up with her doctor if you have any other concerns please do not hesitate to come back to emergency department. Your prescribe Zofran as needed for nausea if you have any other concerns please return to the emergency department. Prescriptions: New ondansetron 4 mg tablet,disintegrating 4 mg PO Q6H Qty: 14 0RF famotidine [Pepcid] 20 mg tablet 20 mg PO BID PRN (Reason: epigastric pain) Qty: 60 0RF No Action hydroxyzine HCl 25 mg tablet 25 mg PO TID PRN (Reason: anxiety) Qty: 14 0RF Rx Instructions: This medication may cause drowsiness or use with caution albuterol sulfate 90 mcg/actuation HFA aerosol inhaler 1 inh inhalation QID PRN (Reason: shortness of breath or wheezing) Qty: 8.5 0RF azithromycin 250 mg tablet See Rx Instructions .ROUTE .COMPLEX Qty: 6 0RF Rx Instructions: take 500 mg today (day 1), then 250 mg for 4 days (days 2-5) codeine-guaifenesin [Guaifenesin AC] 10-100 mg/5 mL liquid 5 ml PO Q6H PRN (Reason: cold symptoms) Qty: 120 0RF prednisone 20 mg tablet 40 mg PO DAILY 5 Days Qty: 10 0RF albuterol sulfate [Ventolin HFA] 90 mcg/actuation HFA aerosol inhaler 2 puff inhalation Q4-6H PRN (Reason: shortness of breath or wheezing) Qty: 8.5 0RF prednisone 50 mg tablet 50 mg PO DAILY 4 Days Qty: 4 0RF prednisone 20 mg tablet 60 mg PO DAILY 5 Days Qty: 15 0RF albuterol sulfate [ProAir HFA] 90 mcg/actuation HFA aerosol inhaler 2 puff inhalation Q4-6H PRN (Reason: shortness of breath or wheezing) Qty: 8.5 0RF
[2022-08-18 12:49] LABS: MANUAL DIFF FLAG NO
[2022-08-18 12:50] LABS: Basophils Percent Auto 0.2 % (0-2); Eosinophils Absolute Auto 0.2 X10*3/uL (0.0-0.4); Eosinophils Percent Auto 3.8 % (0-4); Hematocrit 44.3 % (42.0-52.0); Hemoglobin 14.5 g/dl (14.0-18.0); Imm Gran Abs Auto 0.01 X10*3/uL (0.00-0.03); Imm Gran Pct Auto 0.2 % (0.0-0.4); Lymphocytes Absolute Auto 1.6 X10*3/uL (1.2-4.9); Lymphocytes Percent Auto 28.1 % (20-40); Mean Corpuscular HGB Conc 32.7 g/dl (31.0-36.0); Mean Corpuscular Hemoglobin 26.2 pg (27.0-33.0); Mean Platelet Volume 10.3 fL (9.4-12.4); Monocytes Absolute Auto 0.5 X10*3/uL (0.1-1.2); Monocytes Percent Auto 8.1 % (2-11); Neutrophils Absolute Auto 3.5 x10*3/uL (2.0-8.3); Neutrophils Percent Auto 59.6 % (45-73); Platelet Count 231 X10*3/uL (160-400); Red Blood Count 5.54 X10*6/uL (4.60-5.80); Red Cell Distribution Width 13.4 % (11.0-16.0); White Blood Count 5.8 X10*3/uL (4.8-10.8)
[2022-08-18 13:20] LABS: Alanine Aminotransferase 12 U/L (0-40); Albumin Level 4.4 g/dL (3.5-5.0); Alkaline Phosphatase 50 U/L (39-117); Anion Gap 9 (12-20); Aspartate Amino Transferase 15 U/L (5-37); Bilirubin Total 0.8 mg/dL (0.0-1.0); Blood Urea Nitrogen 15 mg/dL (9-16); Calcium 9.8 mg/dL (8.4-10.2); Carbon Dioxide 26 mmol/L (22-29); Chloride 110 mmol/L (96-108); Creatinine Clr Calc Pharmacy 94.1; Estimated Glomerular Filt Rate > 60; Glucose Random 84 mg/dL (60-115); Lipase 15 U/L (8-78); Potassium 4.4 mmol/L (3.3-5.1); Sodium 141 mmol/L (135-145)
[2022-08-18] MEDS: Famotidine 20 MG TABLET PO (13:55)
[2022-08-18] MEDS: Magnesium Hydrox/Alum Hydrox 30 ML ORAL.SUSP PO (13:55)
[2022-08-18] MEDS: Ondansetron ODT 4 MG TAB.RAPDIS TRANSLINGU (13:55)
== END 2022-08-18 14:16 | disposition home or self-care (01) ==
PROVIDERS: Physician Assistant; Emergency Provider Student in an Organized Health Care Education/Training Program; PCP Internal Medicine
DX: R10.9 Unspecified abdominal pain (principal); R11.0 Nausea; F17.200 Nicotine dependence, unspecified, uncomplicated; Z79.899 Other long term (current) drug therapy
CPT/HCPCS: 36415; 80053; 83690; 85025; 99283; 99284

== ENCOUNTER 2022-08-20 01:01 | Emergency (ER) | payer OTHER, SELFPAY ==
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
[2022-08-20 01:03] VITALS: BP 136/72; PULSE 106; RESP 18; TEMP 36; O2SAT 100; BMI 22.1
[2022-08-20] MEDS: Acetaminophen 325 MG TABLET 975 MG PO (02:13)
[2022-08-20] MEDS: Diphth,Pertus(ACell),Tet Adult 0.5 ML SYRINGE IM (02:13)
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
== END 2022-08-20 03:25 | disposition home or self-care (01) ==
PROVIDERS: Emergency Provider Emergency Medicine; PCP Internal Medicine
DX: S00.33XA Contusion of nose, initial encounter (principal); W50.0XXA Accidental hit or strike by another person, initial encounter; Y93.9 Activity, unspecified; Y92.9 Unspecified place or not applicable; Y99.9 Unspecified external cause status
CPT/HCPCS: 70160; 90471; 90715; 99284

== ENCOUNTER 2023-01-03 13:47 | Emergency (ER) | payer OTHER, SELFPAY ==
--- NOTE | ~2023-01-03 | XR_ITS ---
EXAMINATION: XR CHEST CLINICAL INFORMATION: Chest pain. COMPARISON: 11/18/2021. TECHNIQUE: 2 views of the chest were obtained. FINDINGS: The cardiomediastinal silhouette is normal. There is no focal lung consolidation or pleural effusion. The bony structures and soft tissues are unremarkable. XR/XR chest 2V IMPRESSION: No active cardiopulmonary disease.
[2023-01-03 13:48] VITALS: BP 100/62; PULSE 65; RESP 20; TEMP 36.2; O2SAT 100; BMI 20.7
--- NOTE | 2023-01-03 13:51 | ECG_ITS ---
Test Reason : SOB Blood Pressure : / mmHG Vent. Rate : 066 BPM Atrial Rate : 066 BPM P-R Int : 174 ms QRS Dur : 108 ms QT Int : 382 ms P-R-T Axes : 067 032 042 degrees QTc Int : 400 ms Sinus rhythm with marked sinus arrhythmia Incomplete right bundle branch block Borderline ECG When compared with ECG of 18-NOV-2021 05:58, Heart rate has decreased Referred By: Generic ED Physician Electronically Signed By:AMBROSE NUNEZ MD
[2023-01-03 14:05] LABS: MANUAL DIFF FLAG NO
[2023-01-03 14:06] LABS: Basophils Percent Auto 0.1 % (0-2); Eosinophils Absolute Auto 0.2 X10*3/uL (0.0-0.4); Eosinophils Percent Auto 2.8 % (0-4); Hemoglobin 15.1 g/dl (14.0-18.0); Imm Gran Abs Auto 0.01 X10*3/uL (0.00-0.03); Imm Gran Pct Auto 0.1 % (0.0-0.4); Lymphocytes Percent Auto 14.8 % (20-40); Mean Corpuscular HGB Conc 32.8 g/dl (31.0-36.0); Mean Corpuscular Hemoglobin 26.3 pg (27.0-33.0); Monocytes Absolute Auto 0.5 X10*3/uL (0.1-1.2); Monocytes Percent Auto 7.5 % (2-11); Neutrophils Percent Auto 74.7 % (45-73); Platelet Count 211 X10*3/uL (160-400); Red Blood Count 5.75 X10*6/uL (4.60-5.80); Red Cell Distribution Width 13.2 % (11.0-16.0); White Blood Count 6.7 X10*3/uL (4.8-10.8)
[2023-01-03 14:19] LABS: Anion Gap 12 (12-20); Blood Urea Nitrogen 15 mg/dL (9-16); Calcium 9.6 mg/dL (8.4-10.2); Carbon Dioxide 26 mmol/L (22-29); Chloride 108 mmol/L (96-108); Creatinine Clr Calc Pharmacy 105.8; Estimated Glomerular Filt Rate > 60; Glucose Random 85 mg/dL (60-115); Potassium 4.1 mmol/L (3.3-5.1); Sodium 142 mmol/L (135-145)
[2023-01-03 14:27] LABS: Troponin-I High Sensitivity < 2.7 ng/L (<3.5-35.0)
[2023-01-03 14:42] LABS: Influenza A PCR NEGATIVE (Negative); Influenza B PCR NEGATIVE (Negative); Resp Syncy Virus RNA Qual PCR NEGATIVE (Negative); SARS COV2 PCR INHOUSE POSITIVE (Negative)
== END 2023-01-03 19:38 | disposition left against medical advice (07) ==
PROVIDERS: Emergency Provider Emergency Medicine; PCP Internal Medicine
DX: U07.1 COVID-19 (principal); R07.9 Chest pain, unspecified
CPT/HCPCS: 0241U; 71046; 80048; 84484; 85025; 93005; 99283

== ENCOUNTER 2023-06-09 03:59 | Emergency (ER) | payer OTHER, SELFPAY ==
--- NOTE | ~2023-06-09 | XR_ITS ---
EXAMINATION: XR CHEST CLINICAL INFORMATION: Rib pain, cough COMPARISON: 01/03/2023 TECHNIQUE: 2 views of the chest were obtained. FINDINGS: The lungs are clear with no focal consolidation. No evidence of pneumothorax, pulmonary edema, or pleural effusions. The cardiomediastinal silhouette is unremarkable. No acute osseous findings. XR/XR chest 2V IMPRESSION: No acute findings.
[2023-06-09 04:23] VITALS: BP 118/72; PULSE 74; RESP 17; TEMP 36.4; O2SAT 99; BMI 19.6
== END 2023-06-09 08:28 | disposition left against medical advice (07) ==
PROVIDERS: Emergency Provider Emergency Medicine
DX: R05.9 Cough, unspecified (principal); R07.81 Pleurodynia
CPT/HCPCS: 71046; 99281; 99283

== ENCOUNTER 2024-01-12 12:56 | Emergency (ER) | payer OTHER, SELFPAY ==
--- NOTE | ~2024-01-12 | US_ITS ---
EXAMINATION: US ABDOMEN LIMITED CLINICAL INFORMATION: Right upper and right lower quadrant pain. COMPARISON: None available. TECHNIQUE: Limited real time imaging of the right upper quadrant abdominal viscera. FINDINGS: GALLBLADDER: The gallbladder is physiologically distended without evidence of stones, sludge, polyps, wall thickening or pericholecystic fluid. COMMON BILE DUCT: Normal in caliber measuring 0.2 cm in diameter. FREE FLUID: None. Targeted sonography of the right lower quadrant was performed. There is nonvisualization of the appendix. US/US abdomen limited IMPRESSION: Unremarkable examination. The decision to follow the area of concern should be based on the clinical assessment. If clinically indicated further cross-sectional imaging could be performed. Electronically signed by: Misha Fonseca MD 01/12/2024 04:57 PM EDT
[2024-01-12 13:11] VITALS: BP 132/75; PULSE 77; RESP 18; TEMP 37; O2SAT 97; BMI 28.3
--- NOTE | 2024-01-12 13:12 | ED.ABDPAIN ---
HPI - Abdominal Pain General Chief Complaint: Abdominal Pain Stated Complaint: ABD PAIN SENT BY [facility] Time Seen by Provider: 01/12/24 15:59 Source: patient Mode of arrival: ambulatory Limitations: no limitations History of Present Illness ED Provider: PAUL RANKIN narrative: 28 yo male with PMH of asthma no prior abdominal surgeries notes some recent constipation due to lactose intake has hx of intolerance notes for 2 days after eating pizza he had RUQ and epigastric pain but no n/v/d fevers and has been eating well. He notes pain now RUQ and RLQ. He was sent by urgent care to rule out appendicitis. He denies fevers and has normal appetite. MD elicited complaint: abdominal pain Pertinent past history: none Onset (ago): day(s) (2) Pain Consistency: intermittent Location: epigastric, RUQ and RLQ Severity: mild Quality: dull Radiation: none Migration to: no migration Exacerbating factors: nothing Relieving factors: nothing Context: other (started after eating pizza) Associated symptoms: constipation Related Data Previous Rx's ?Medication ?Instructions ?Recorded hydroxyzine HCl 25 mg tablet 25 mg PO TID PRN anxiety #14 tabs 10/28/20 albuterol sulfate 90 mcg/actuation 1 inh inhalation QID PRN shortness 03/21/21 aerosol inhaler of breath or wheezing #8.5 grams azithromycin 250 mg tablet See Rx Instructions PO .COMPLEX #6 03/21/21 tabs codeine 10 mg-guaifenesin 100 mg/5 5 ml PO Q6H PRN cold symptoms #120 03/21/21 mL oral liquid (Guaifenesin AC) mL prednisone 20 mg tablet 40 mg (2 x 20 mg) PO DAILY rash 5 03/21/21 days #10 tabs albuterol sulfate 90 mcg/actuation 2 puff inhalation Q4-6H PRN 08/16/21 aerosol inhaler (Ventolin HFA) shortness of breath or wheezing #8.5 grams prednisone 50 mg tablet 50 mg PO DAILY 4 days #4 tabs 08/16/21 albuterol sulfate 90 mcg/actuation 2 puff inhalation Q4-6H PRN 11/18/21 aerosol inhaler (ProAir HFA) shortness of breath or wheezing #8.5 grams prednisone 20 mg tablet 60 mg (3 x 20 mg) PO DAILY 5 days 11/18/21 #15 tabs famotidine 20 mg tablet (Pepcid) 20 mg PO BID PRN epigastric pain 08/18/22 #60 tabs ondansetron 4 mg disintegrating 4 mg PO Q6H #14 tabs 08/18/22 tablet ibuprofen 600 mg tablet 600 mg PO TID PRN pain #14 tabs 08/20/22 docusate sodium 100 mg capsule 100 mg PO BID PRN constipation #30 01/12/24 (Colace) caps famotidine 20 mg tablet (Pepcid) 20 mg PO DAILY PRN abdominal 01/12/24 discomfort #30 tabs sennosides 8.6 mg tablet (senna) 8.6 mg PO BEDTIME PRN constipation 01/12/24 #30 tabs Allergies Allergy/AdvReac Type Severity Reaction Status Date / Time cat dander [CAT] Allergy Unknown PIMPLES Verified 01/12/24 13:13 dog dander [DOG] Allergy Unknown PIMPLES Verified 01/12/24 13:13 SEASONAL ALLERGIES Allergy Unknown ITCHY EYES Uncoded 01/12/24 13:13 Review of Systems Review of Systems Constitutional : No Weight loss, No Fever, No Chills ENT/Mouth : No sore throat, No Rhinorrhea Eyes: No Swelling, No Redness Cardiovascular : No Chest Pain, No SOB, NoEdema Respiratory : No Cough, No Sputum, No Wheezing Gastrointestinal : no Nausea, no Vomiting, no Diarrhea, positive abdominal Pain, No Hematochezia, No Melena, pos constipation Genitourinary : No Dysuria, No Urinary Frequency, No Hematuria, No Urgency Musculoskeletal : No joint pain, No Myalgias, No Joint Swelling Skin : No Skin Lesions, No rash Neuro : No Weakness, No Numbness, No Dizziness, No Headache All other systems reviewed and are negative. [facility] Past Medical History Attestation statement: The following information was validated with the patient. Source: old records reviewed Medical History Asthma Social History Social History Alcohol intake: never Patient Tobacco Use Status: Current everyday Tobacco user Substance Use Type: Heroin Advance Directives: No Advance Directives Information Provided: Yes Do you have a plan to hurt others: No Plan Physical Exam ED Vital Signs: Vital Signs - 24 hr 01/12/24 13:11 01/12/24 15:56 Temperature 98.6 F 97.5 F Pulse Rate 77 53 Respiratory Rate 18 16 Blood Pressure 132/75 111/67 Pulse Oximetry 97 98 Oxygen Delivery Method Room Air Room Air BMI result Body Mass Index 28.3 Appearance: Alert. Oriented X3. No acute distress. Eyes: Pupils equal, round and reactive to light. ENT: Pharynx normal. Neck: Normal inspection. Neck supple. CVS: Normal heart rate and rhythm. Pulses normal. Respiratory: No respiratory distress. Breath sounds normal. Abdomen: Soft and mild RLQ and RUQ pain no rebound or guarding, neg psoas sign neg rovsings sign. Skin: Skin warm and dry. Normal skin color. Normal skin turgor. Extremities: No lower extremity edema. No calf ttp Neuro: Oriented X 3. No motor deficit. No sensory deficit. Course Course Course Narrative: This is a Rapid Medical Examination (RME) performed by Radha Pa PA-C in triage. Full HPI, ROS, assessment and treatment plan per primary provider in the Main ED. 28 yo male here for eval of 6/10 RLQ pain x2 days. reports normal PO intake. no N/V/D/ fevers. seen at today, had tenderness to RLQ, sent here for appe rule out. + well appearing. Plan: labs, UA + will defer any imaging to primary provider Medical Decision Making Medical Decision Making [facility] Narrative: 28 yo male with PMH of asthma no prior abdominal surgeries here with constipation and RUQ and RLQ pain but no associated fevers, n/v/d and has normal appetite after eating pizza. His story is very inconsistent with appendicitis and he has negative wbc count and CRP on day 2. On exam most of pain is in epigastric and RUQ will obtain US of appendixi low susp of appendicitis and RUQ for biliary colic Differential Diagnosis Differential Diagnoses: The differential diagnosis associated with the presentation includes biliary colic, gastritis, PUD, constipation Admission/Observation Consideration of admission/observation: Escalation of care including admission/observation considered he has no WBC count no shift and negative CRP doubt appendicitis at this time will instruct him to return and close follow up will treat as GERD and constipation Lab Data [facility] Lab Attestation statement: I reviewed the patient's lab results. 01/12/24 13:22 01/12/24 13:22 Labs: Lab Results 01/12/24 01/12/24 Range/Units 13:22 16:21 WBC 4.9 (4.8-10.8) X10*3/uL RBC 5.92 H (4.60-5.80) X10*6/uL Hgb 15.4 (14.0-18.0) g/dl Hct 45.6 (42.0-52.0) % MCV 77.0 L (80.0-98.0) fL MCH 26.0 L (27.0-33.0) pg MCHC 33.8 (31.0-36.0) g/dl RDW 13.1 (11.0-16.0) % Plt Count 252 (160-400) X10*3/uL MPV 10.1 (9.4-12.4) fL Immature Gran % (Auto) 0.4 (0.0-0.4) % Neut % (Auto) 54.1 (45-73) % Lymph % (Auto) 30.8 (20-40) % [place] % (Auto) 9.2 (2-11) % Eos % (Auto) 5.1 H (0-4) % Baso % (Auto) 0.4 (0-2) % Lymph # (Auto) 1.5 (1.2-4.9) X10*3/uL [place] # (Auto) 0.5 (0.1-1.2) X10*3/uL Eos # (Auto) 0.3 (0.0-0.4) X10*3/uL Baso # (Auto) 0.0 (0.0-0.2) X10*3/uL Abs Immat Gran (auto) 0.02 (0.00-0.03) X10*3/uL Absolute Neuts (auto) 2.6 (2.0-8.3) x10*3/uL Absolute Nucleated RBC 0.000 (0.0-0.012) X10*3/uL Nucleated RBC % (auto) 0.0 (0.0-0.2) /100WBC ESR 2 (0-15) MM/HR Sodium 138 (135-145) mmol/L Potassium 4.1 (3.3-5.1) mmol/L Chloride 109 H (96-108) mmol/L Carbon Dioxide 23 (22-29) mmol/L Anion Gap 10 L (12-20) BUN 17 H (9-16) mg/dL Creatinine 0.93 (0.5-1.4) mg/dL Estim Creat Clear Calc 111.4 Estimated GFR > 60 Random Glucose 95 (60-115) mg/dL Calcium 9.9 (8.4-10.2) mg/dL Magnesium 1.9 (1.6-2.6) mg/dL Total Bilirubin 0.4 (0.0-1.0) mg/dL AST 20 (5-37) U/L ALT 21 (0-40) U/L Alkaline Phosphatase 54 (39-117) U/L C-Reactive Protein 0.30 (< or = 0.50) mg/dL Total Protein 7.3 (6.5-8.0) g/dL Albumin 4.3 (3.5-5.0) g/dL Lipase 18 (8-78) U/L Urine Color Yellow Urine Appearance Clear Urine pH 5.5 (5.0-9.0) Ur Specific [place] >= 1.030 H (1.005-1.025) Urine Protein Negative (Neg-Trace) mg/dL Urine Glucose (UA) Negative (Negative) mg/dL Urine Ketones Negative (Negative) mg/dL Urine Blood Negative (Negative) Urine Nitrite Negative (Negative) Ur Leukocyte Esterase Negative (Negative) Independent Interpretation I performed an independent interpretation of an: Ultrasound (no biliary colic) Radiology Impression Discussion of test interpretation with radiology: I have reviewed the radiologist's reading. External Record Review External record reviewed: Office record Prescription Management I considered prescription management with: Other Discharge Plan Discharge Clinical Impression: Abdominal pain Qualifiers: Abdominal location: right upper quadrant Qualified Code(s): R10.11 - Right upper quadrant pain Patient Disposition: Home, Self-Care Instructions: Abdominal Pain (ED) Additional Instructions: labs normal no WBC count and negative inflammatory markers liver and pancreas tests/kidney reassuring US no inflammation of gallbladder suspect your pain is either related to constipation or acid reflux will treat as both return for fevers, worsening pain, unable to eat or drink, worsening pain or any other concerns this could be early appendicitis though work up today reassuring Prescriptions: New sennosides [senna] 8.6 mg tablet 8.6 mg PO BEDTIME PRN (Reason: constipation) Qty: 30 0RF famotidine [Pepcid] 20 mg tablet 20 mg PO DAILY PRN (Reason: abdominal discomfort) Qty: 30 0RF docusate sodium [Colace] 100 mg capsule 100 mg PO BID PRN (Reason: constipation) Qty: 30 0RF No Action hydroxyzine HCl 25 mg tablet 25 mg PO TID PRN (Reason: anxiety) Qty: 14 0RF Rx Instructions: This medication may cause drowsiness or use with caution albuterol sulfate 90 mcg/actuation HFA aerosol inhaler 1 inh inhalation QID PRN (Reason: shortness of breath or wheezing) Qty: 8.5 0RF azithromycin 250 mg tablet See Rx Instructions .ROUTE .COMPLEX Qty: 6 0RF Rx Instructions: take 500 mg today (day 1), then 250 mg for 4 days (days 2-5) codeine-guaifenesin [Guaifenesin AC] 10-100 mg/5 mL liquid 5 ml PO Q6H PRN (Reason: cold symptoms) Qty: 120 0RF prednisone 20 mg tablet 40 mg PO DAILY 5 Days Qty: 10 0RF albuterol sulfate [Ventolin HFA] 90 mcg/actuation HFA aerosol inhaler 2 puff inhalation Q4-6H PRN (Reason: shortness of breath or wheezing) Qty: 8.5 0RF prednisone 50 mg tablet 50 mg PO DAILY 4 Days Qty: 4 0RF prednisone 20 mg tablet 60 mg PO DAILY 5 Days Qty: 15 0RF albuterol sulfate [ProAir HFA] 90 mcg/actuation HFA aerosol inhaler 2 puff inhalation Q4-6H PRN (Reason: shortness of breath or wheezing) Qty: 8.5 0RF ondansetron 4 mg tablet,disintegrating 4 mg PO Q6H Qty: 14 0RF famotidine [Pepcid] 20 mg tablet 20 mg PO BID PRN (Reason: epigastric pain) Qty: 60 0RF ibuprofen 600 mg tablet 600 mg PO TID PRN (Reason: pain) Qty: 14 0RF Stand Alone Forms: Work/School Release Print Language: Turkmen
[2024-01-12 13:27] LABS: MANUAL DIFF FLAG NO
[2024-01-12 13:32] LABS: Basophils Percent Auto 0.4 % (0-2); Eosinophils Absolute Auto 0.3 X10*3/uL (0.0-0.4); Eosinophils Percent Auto 5.1 % (0-4); Hematocrit 45.6 % (42.0-52.0); Hemoglobin 15.4 g/dl (14.0-18.0); Imm Gran Abs Auto 0.02 X10*3/uL (0.00-0.03); Imm Gran Pct Auto 0.4 % (0.0-0.4); Lymphocytes Absolute Auto 1.5 X10*3/uL (1.2-4.9); Lymphocytes Percent Auto 30.8 % (20-40); Mean Corpuscular HGB Conc 33.8 g/dl (31.0-36.0); Mean Platelet Volume 10.1 fL (9.4-12.4); Monocytes Absolute Auto 0.5 X10*3/uL (0.1-1.2); Monocytes Percent Auto 9.2 % (2-11); Neutrophils Absolute Auto 2.6 x10*3/uL (2.0-8.3); Neutrophils Percent Auto 54.1 % (45-73); Platelet Count 252 X10*3/uL (160-400); Red Blood Count 5.92 X10*6/uL (4.60-5.80); Red Cell Distribution Width 13.1 % (11.0-16.0); White Blood Count 4.9 X10*3/uL (4.8-10.8)
[2024-01-12 13:52] LABS: Alanine Aminotransferase 21 U/L (0-40); Albumin Level 4.3 g/dL (3.5-5.0); Alkaline Phosphatase 54 U/L (39-117); Anion Gap 10 (12-20); Aspartate Amino Transferase 20 U/L (5-37); Bilirubin Total 0.4 mg/dL (0.0-1.0); Blood Urea Nitrogen 17 mg/dL (9-16); Calcium 9.9 mg/dL (8.4-10.2); Carbon Dioxide 23 mmol/L (22-29); Chloride 109 mmol/L (96-108); Creatinine Clr Calc Pharmacy 111.4; Estimated Glomerular Filt Rate > 60; Glucose Random 95 mg/dL (60-115); Lipase 18 U/L (8-78); Magnesium 1.9 mg/dL (1.6-2.6); Potassium 4.1 mmol/L (3.3-5.1); Sodium 138 mmol/L (135-145); Total Protein 7.3 g/dL (6.5-8.0)
[2024-01-12 14:09] LABS: Erythrocyte Sedimentation Rate 2 MM/HR (0-15)
[2024-01-12 15:56] VITALS: BP 111/67; PULSE 53; RESP 16; TEMP 36.4; O2SAT 98
--- NOTE | 2024-01-12 16:23 | MHC.EDTECH ---
pt changed over and offered socks, pt refused socks and was being rude
[2024-01-12 16:26] LABS: Appearance Urine Clear; Color Urine Yellow; Glucose Urine UA Negative (Negative); Leukocyte Esterase Urine Negative (Negative); Nitrite Urine Negative (Negative); PH 5.5 (5.0-9.0); Specific Gravity - Urine >= 1.030 (1.005-1.025); Urine Blood Negative (Negative); Urine Ketones Negative (Negative); Urine Protein Negative (Neg-Trace)
[2024-01-12 17:25] VITALS: BP 110/68; PULSE 62; RESP 16; TEMP 36.7; O2SAT 98
== END 2024-01-12 17:26 | disposition home or self-care (01) ==
PROVIDERS: Physician Assistant Medical; Emergency Provider Emergency Medicine; PCP Internal Medicine
DX: R10.11 Right upper quadrant pain (principal); R10.13 Epigastric pain; R10.31 Right lower quadrant pain; Z79.899 Other long term (current) drug therapy
CPT/HCPCS: 36415; 76705; 80053; 81003; 83690; 83735; 85025; 85652; 86140; 99284

== ENCOUNTER 2024-09-07 09:16 | Emergency (ER) | payer OTHER, SELFPAY ==
[2024-09-07 09:32] VITALS: BP 118/65; PULSE 66; RESP 18; TEMP 36.9; O2SAT 97; BMI 26.4
--- NOTE | 2024-09-07 09:42 | ED_ITS ---
HPI - Abdominal Pain General Chief Complaint: Abdominal Pain Stated Complaint: stomach feels bloated Time Seen by Provider: 09/07/24 09:35 Source: patient Mode of arrival: ambulatory Limitations: no limitations History of Present Illness ED Provider: Shirley Ley NP HPI narrative: Patient is a 28-year-old male who presents emergency department for evaluation. Reports over the past 3-4 weeks he has been having intermittent episodes of abdominal bloating with the associated nausea but denies any vomiting, has intermittent episodes of diarrhea without hematochezia or melena. He states that this is not uncommon for him sometimes it only lasts a few days though. This is the longest he has had these symptoms for. He states that today was the first time he was experiencing abdominal pain associated with this and it is diffuse throughout the abdomen. He does admit to excessive belching and excessive passing of gas. He states that yesterday he only ate Lithuanian fries and chicken wings. Has not yet eaten today. Did not take any OTC medications for these symptoms. He denies any fevers or chills. No genitourinary symptoms. Initial nursing triage reports that he has spit up blood a few times, on further investigation it seems as though he suffers from seasonal allergies and occasionally when he blows his nose, or clears his secretions from his nose to his throat he spits out the phlegm, there are flecks of blood Related Data Previous Rx's ?Medication ?Instructions ?Recorded hydroxyzine HCl 25 mg tablet 25 mg PO TID PRN anxiety #14 tabs 10/28/20 albuterol sulfate 90 mcg/actuation 1 inh inhalation QI D PRN shortness 03/21/21 aerosol inhaler of breath or wheezing #8.5 g gosia azithromycin 250 mg tablet See Rx Instructions PO .COM PLEX #6 03/21/21 tabs codeine 10 mg-guaifenesin 100 mg/5 5 ml PO Q6H PRN col d symptoms #120 03/21/21 mL oral liquid (Guaifenesin AC) mL prednisone 20 mg tablet 40 mg (2 x 20 mg) PO DAILY r sydnie 5 03/21/21 days #10 tabs albuterol sulfate 90 mcg/actuation 2 puff inhalation Q 4-6H PRN 08/16/21 aerosol inhaler (Ventolin HFA) shortness of breath or wheezing #8.5 grams prednisone 50 mg tablet 50 mg PO DAILY 4 days #4 tab s 08/16/21 albuterol sulfate 90 mcg/actuation 2 puff inhalation Q 4-6H PRN 11/18/21 aerosol inhaler (ProAir HFA) shortness of breath or wh eezing #8.5 grams prednisone 20 mg tablet 60 mg (3 x 20 mg) PO DAILY 5 days 11/18/21 #15 tabs famotidine 20 mg tablet (Pepcid) 20 mg PO BID PRN epig astric pain 08/18/22 #60 tabs ondansetron 4 mg disintegrating 4 mg PO Q6H #14 tabs 0 08/18/22 tablet ibuprofen 600 mg tablet 600 mg PO TID PRN pain #14 t abs 08/20/22 docusate sodium 100 mg capsule 100 mg PO BID PRN const ipation #30 01/12/24 (Colace) caps famotidine 20 mg tablet (Pepcid) 20 mg PO DAILY PRN ab dominal 01/12/24 discomfort #30 tabs sennosides 8.6 mg tablet (senna) 8.6 mg PO BEDTIME PRN constipation 01/12/24 #30 tabs Allergies Allergy/AdvReac Type Severity Reaction Status Date / Time cat dander (CAT) Allergy Unknown PIMPLES Verified 09/07/24 09:33 dog dander (DOG) Allergy Unknown PIMPLES Verified 09/07/24 09:33 SEASONAL ALLERGIES Allergy Unknown ITCHY EYES Uncoded 01/12/24 13:13 Review of Systems Review of Systems Yes all other systems are reviewed and are negative PMFSH Past Medical History Attestation statement: The following information was validated with the patient. Source: old records reviewed Medical History Asthma Social History Social History Alcohol intake: never Patient Tobacco Use Status: Current everyday Tobacco user Smoked in Last 30 Days: No Use of substances other than those prescribed or required for medical reasons: No Substance Use Type: Heroin Advance Directives: No Advance Directives Information Provided: Yes Do you have a plan to hurt others: No Plan Physical Exam ED Vital Signs: Vital Signs - 24 hr 09/07/24 09:32 09/07/24 10:02 09/07/24 12:00 Temperature 98.5 F 98.2 F Pulse Rate 66 70 78 Respiratory Rate 18 18 15 Blood Pressure 118/65 115/65 122/74 Pulse Oximetry 97 99 Oxygen Delivery Method Room Air Room Air Room Air 09/07/24 14:14 Temperature 98.7 F Pulse Rate 16 L Respiratory Rate 17 Blood Pressure 122/84 Pulse Oximetry 98 Oxygen Delivery Method Room Air BMI result Body Mass Index 26.4 Appearance: Alert.?Oriented to person, place and time. No acute distress.?Normal affect. Eyes: Pupils equal, round and reactive to light.? ENT: Pharynx normal.?? Neck: Normal inspection.? Neck supple.?? CVS: Heart sounds normal. Normal heart rate and rhythm.? Pulses normal.?? Respiratory: No respiratory distress.? Lung sounds clear to auscultation bilaterally?? Abdomen: Soft with mild epigastric tenderness upon palpation. No CVAT. Normoactive bowel sounds. Skin: Skin warm and dry.? Normal skin color.?? Extremities: No lower extremity edema.? Neuro: Moves all extremities spontaneously. Sensation intact bilaterally. Ambulates with normal steady gait. Medical Decision Making Medical Decision Making MDM Narrative: Patient is a 28-year-old male with past medical history of asthma, crutches intolerance who presents emergency department for evaluation of generalized abdominal pain described as bloating today. Over the past 3-4 weeks has been experiencing bloating intermittent nausea and intermittent diarrhea as per HPI. Overall he is well-appearing, nontoxic, afebrile. His abdomen is soft, nonrigid, no rebound tenderness or guarding. Is not hypotensive. He has a mild epigastric tenderness upon palpation. Associated excessive gas. Will obtain CBC to evaluate for leukocytosis/ anemia, CMP and lipase to evaluate for abnormal electrolytes /abnormal renal function/ abnormal hepatic/biliary function, and Urinalysis. Suspect this might be secondary to food intolerance, gas related pain, potentially biliary colic lithiasis, exam is overall benign I have lower suspicion for acute cholecystitis, he is not vomiting currently without nausea. He has been eating and drinking normally today. Will trial GI cocktail in addition to simethicone. Symptomatic improvement, tolerating oral intake. Requesting to leave at this time which I feel is reasonable. Advised strict return precautions, bland diet, outpatient follow-up with primary care provider. Differential Diagnosis Differential Diagnoses: The differential diagnosis associated with the presentation includes (See narrative above) Admission/Observation Consideration of admission/observation: Escalation of care including admission/observation considered Lab Data MDM Lab Attestation statement: I reviewed the patient's lab results. CBC reveals leukopenia which appears chronic in nature we have microcytic anemia that does not meet transfusion criteria, no thrombocytopenia. No derangement. No TAMMY. LFTs and lipase are unremarkable. Urinalysis without evidence of infection or microscopic hematuria 09/07/24 10:07 09/07/24 10:07 Labs: Lab Results 09/07/24 09/07/24 Range/Units 10:07 13:29 WBC 3.3 L (4.8-10.8) X10*3/uL RBC 5.24 (4.60-5.80) X10*6/uL Hgb 13.6 L (14.0-18.0) g/dl Hct 40.0 L (42.0-52.0) % MCV 76.3 L (80.0-98.0) fL MCH 26.0 L (27.0-33.0) pg MCHC 34.0 (31.0-36.0) g/dl RDW 13.3 (11.0-16.0) % Plt Count 192 (160-400) X10*3/uL MPV 10.3 (9.4-12.4) fL Immature Gran % (Auto) 0.3 (0.0-0.4) % Neut % (Auto) 57.4 (45-73) % Lymph % (Auto) 17.4 L (20-40) % [place] % (Auto) 17.4 H (2-11) % Eos % (Auto) 6.9 H (0-4) % Baso % (Auto) 0.6 (0-2) % Lymph # (Auto) 0.6 L (1.2-4.9) X10*3/uL [place] # (Auto) 0.6 (0.1-1.2) X10*3/uL Eos # (Auto) 0.2 (0.0-0.4) X10*3/uL Baso # (Auto) 0.0 (0.0-0.2) X10*3/uL Abs Immat Gran (auto) 0.01 (0.00-0.03) X10*3/uL Absolute Neuts (auto) 1.9 L (2.0-8.3) x10*3/uL Absolute Nucleated RBC 0.000 (0.0-0.012) X10*3/uL Nucleated RBC % (auto) 0.0 (0.0-0.2) /100WBC Sodium 141 (135-145) mmol/L Potassium 3.9 (3.3-5.1) mmol/L Chloride 113 H (96-108) mmol/L Carbon Dioxide 23 (22-29) mmol/L Anion Gap 9 L (12-20) BUN 11 (9-16) mg/dL Creatinine 0.87 (0.5-1.4) mg/dL Estim Creat Clear Calc 103.5 Estimated GFR > 60 Random Glucose 100 (60-115) mg/dL Calcium 8.5 D (8.4-10.2) mg/dL Total Bilirubin 0.2 (0.0-1.0) mg/dL AST 23 (5-37) U/L ALT 24 (0-40) U/L Alkaline Phosphatase 57 (39-117) U/L Total Protein 6.2 L (6.5-8.0) g/dL Albumin 4.0 (3.5-5.0) g/dL Lipase 21 (8-78) U/L Urine Color Yellow Urine Appearance Clear Urine pH 7.5 (5.0-9.0) Ur Specific [place] 1.010 (1.005-1.025) Urine Protein Negative (Neg-Trace) mg/dL Urine Glucose (UA) Negative (Negative) mg/dL Urine Ketones Negative (Negative) mg/dL Urine Blood Negative (Negative) Urine Nitrite Negative (Negative) Ur Leukocyte Esterase Negative (Negative) External Record Review External record reviewed: Outpatient record Medications Administered Discontinued Medications Generic Name Dose Route Start Last Admin Trade Name Freq PRN Reason Stop Dose Admin Al Hydroxide/Mg Hydroxide 30 ml 09/07/24 09:50 09/07/24 09:59 Magnesium Hydrox/Alum Hydrox 30 Ml Oral.Susp PO 09/07/24 09:51 30 ml ONCE ONE Administration Famotidine 20 mg 09/07/24 09:50 09/07/24 09:59 Famotidine 20 Mg Tablet PO 09/07/24 09:51 20 mg ONCE ONE Administration Lidocaine HCl 15 ml 09/07/24 09:50 09/07/24 09:59 Lidocaine Hcl Viscous 2 % 15 Ml Solution MUCOUS MEM 09/07/24 09:51 15 ml ONCE ONE Administration Simethicone 160 mg 09/07/24 09:50 09/07/24 09:59 Simethicone 80 Mg Tab.Chew PO 09/07/24 09:51 160 mg ONCE ONE Administration Discharge Plan Discharge Clinical Impression: Abdominal pain Patient Disposition: Home, Self-Care Instructions: Abdominal Pain (ED) Additional Instructions: Contact your primary care provider to arrange for a follow-up visit. You may return back to emergency department any new or worsening symptoms or concerns. Introduce a bland diet including crackers, bananas, rice, soup, toast, and boiled vegetables. This may progress to plain baked or boiled chicken or turkey. Avoid dairy products or foods high in fat or grease. Prescriptions: No Action hydroxyzine HCl 25 mg tablet 25 mg PO TID PRN (Reason: anxiety) Qty: 14 0RF Rx Instructions: This medication may cause drowsiness or use with caution albuterol sulfate 90 mcg/actuation HFA aerosol inhaler 1 inh inhalation QID PRN (Reason: shortness of breath or wheezing) Qty: 8.5 0RF azithromycin 250 mg tablet See Rx Instructions .ROUTE .COMPLEX Qty: 6 0RF Rx Instructions: take 500 mg today (day 1), then 250 mg for 4 days (days 2-5) codeine-guaifenesin [Guaifenesin AC] 10-100 mg/5 mL liquid 5 ml PO Q6H PRN (Reason: cold symptoms) Qty: 120 0RF prednisone 20 mg tablet 40 mg PO DAILY 5 Days Qty: 10 0RF albuterol sulfate [Ventolin HFA] 90 mcg/actuation HFA aerosol inhaler 2 puff inhalation Q4-6H PRN (Reason: shortness of breath or wheezing) Qty: 8.5 0RF prednisone 50 mg tablet 50 mg PO DAILY 4 Days Qty: 4 0RF prednisone 20 mg tablet 60 mg PO DAILY 5 Days Qty: 15 0RF albuterol sulfate [ProAir HFA] 90 mcg/actuation HFA aerosol inhaler 2 puff inhalation Q4-6H PRN (Reason: shortness of breath or wheezing) Qty: 8.5 0RF ondansetron 4 mg tablet,disintegrating 4 mg PO Q6H Qty: 14 0RF famotidine [Pepcid] 20 mg tablet 20 mg PO BID PRN (Reason: epigastric pain) Qty: 60 0RF ibuprofen 600 mg tablet 600 mg PO TID PRN (Reason: pain) Qty: 14 0RF sennosides [senna] 8.6 mg tablet 8.6 mg PO BEDTIME PRN (Reason: constipation) Qty: 30 0RF famotidine [Pepcid] 20 mg tablet 20 mg PO DAILY PRN (Reason: abdominal discomfort) Qty: 30 0RF docusate sodium [Colace] 100 mg capsule 100 mg PO BID PRN (Reason: constipation) Qty: 30 0RF Referrals: Physician,Unknown J [Primary Care Provider, Medical] Print Language: Luxembourger
[2024-09-07] MEDS: Famotidine 20 MG TABLET PO (09:59)
[2024-09-07] MEDS: Simethicone 80 MG TAB.CHEW 160 MG PO (09:59)
[2024-09-07] MEDS: Lidocaine HCl Viscous 2 % 15 ML SOLUTION MUCOUS MEM (09:59)
[2024-09-07] MEDS: Magnesium Hydrox/Alum Hydrox 30 ML ORAL.SUSP PO (09:59)
--- NOTE | 2024-09-07 10:01 | PC.NURSE ---
patient a&ox3, vss, pt medicated per order, tech to draw labs, call duncan within reach, plan of care ongoing
[2024-09-07 10:02] VITALS: BP 115/65; PULSE 70; RESP 18
[2024-09-07 10:11] LABS: MANUAL DIFF FLAG NO
[2024-09-07 10:21] LABS: Basophils Percent Auto 0.6 % (0-2); Eosinophils Absolute Auto 0.2 X10*3/uL (0.0-0.4); Eosinophils Percent Auto 6.9 % (0-4); Hemoglobin 13.6 g/dl (14.0-18.0); Imm Gran Abs Auto 0.01 X10*3/uL (0.00-0.03); Imm Gran Pct Auto 0.3 % (0.0-0.4); Lymphocytes Absolute Auto 0.6 X10*3/uL (1.2-4.9); Lymphocytes Percent Auto 17.4 % (20-40); Mean Corpuscular Volume 76.3 fL (80.0-98.0); Mean Platelet Volume 10.3 fL (9.4-12.4); Monocytes Absolute Auto 0.6 X10*3/uL (0.1-1.2); Monocytes Percent Auto 17.4 % (2-11); Neutrophils Absolute Auto 1.9 x10*3/uL (2.0-8.3); Neutrophils Percent Auto 57.4 % (45-73); Platelet Count 192 X10*3/uL (160-400); Red Blood Count 5.24 X10*6/uL (4.60-5.80); Red Cell Distribution Width 13.3 % (11.0-16.0); White Blood Count 3.3 X10*3/uL (4.8-10.8)
--- OUTSIDE RECORDS SUMMARY | 2024-09-07 10:25 | XMS_ITS ---
Author Name [facility] Organization Unknown Encounters Encounter Type Encounter Reason Primary Diagnosis Location Date Emergency Acute upper respiratory infection, unspecified Acute upper respiratory infection, unspecified [facility] 02/05/2023 Care Team Organization Name Specialty Phone Email Start Date End Juan Pablo law [facility] 04/02/2023 [facility] 02/05/2023 08/16/2024 [facility] 02/05/2023
[2024-09-07 10:33] LABS: Alanine Aminotransferase 24 U/L (0-40); Alkaline Phosphatase 57 U/L (39-117); Anion Gap 9 (12-20); Aspartate Amino Transferase 23 U/L (5-37); Bilirubin Total 0.2 mg/dL (0.0-1.0); Blood Urea Nitrogen 11 mg/dL (9-16); Calcium 8.5 mg/dL (8.4-10.2); Carbon Dioxide 23 mmol/L (22-29); Chloride 113 mmol/L (96-108); Creatinine Clr Calc Pharmacy 103.5; Estimated Glomerular Filt Rate > 60; Glucose Random 100 mg/dL (60-115); Lipase 21 U/L (8-78); Potassium 3.9 mmol/L (3.3-5.1); Sodium 141 mmol/L (135-145); Total Protein 6.2 g/dL (6.5-8.0)
[2024-09-07 12:00] VITALS: BP 122/74; PULSE 78; RESP 15; TEMP 36.8; O2SAT 99
--- NOTE | 2024-09-07 13:30 | PC.NURSE ---
urine obtained, pt given crackers and gingeral as po trial per request of provider.
[2024-09-07 13:37] LABS: Appearance Urine Clear; Color Urine Yellow; Glucose Urine UA Negative (Negative); Leukocyte Esterase Urine Negative (Negative); Nitrite Urine Negative (Negative); PH 7.5 (5.0-9.0); Urine Blood Negative (Negative); Urine Ketones Negative (Negative); Urine Protein Negative (Neg-Trace)
[2024-09-07 14:14] VITALS: BP 122/84; PULSE 66; RESP 17; TEMP 37.1; O2SAT 98
[2024-09-07 15:12] VITALS: BP 120/78; PULSE 78; RESP 16; TEMP 36.8; O2SAT 98
== END 2024-09-07 15:13 | disposition home or self-care (01) ==
PROVIDERS: Nurse Practitioner Family; Emergency Provider Emergency Medicine
DX: R10.2 Pelvic and perineal pain (principal); R11.0 Nausea; R14.0 Abdominal distension (gaseous); F17.210 Nicotine dependence, cigarettes, uncomplicated
CPT/HCPCS: 36415; 80053; 81003; 83690; 85025; 99283; 99284

== ENCOUNTER 2024-12-12 18:58 | Emergency (ER) | payer OTHER, SELFPAY ==
[2024-12-12 19:01] VITALS: BP 153/76; PULSE 79; RESP 20; TEMP 36; O2SAT 98; BMI 25.2
--- NOTE | 2024-12-12 19:03 | ED.GENADULT ---
HPI - General Adult General Chief complaint: Skin/Abscess/Foreign Body Stated complaint: left finger laceration Time Seen by Provider: 12/12/24 20:14 Source: patient Mode of arrival: ambulatory Limitations: no limitations History of Present Illness ED Provider: Crow MACIAS HPI narrative: Patient is a 29-year-old male presenting to the ED reporting just prior to arrival he was using a knife to cut open food packaging when he accidentally inflicted a laceration to the distal pad of his left index finger. Patient is right-hand dominant. The patient was able to control bleeding prior to arrival and presents to the ED for repair. The patient is unsure of his last tetanus shot. The patient denies distal paresthesias or impaired range of motion. Related Data Previous Rx's ?Medication ?Instructions ?Recorded hydroxyzine HCl 25 mg tablet 25 mg PO TID PRN anxiety #14 tabs 10/28/20 albuterol sulfate 90 mcg/actuation 1 inh inhalation QID PRN shortness 03/21/21 aerosol inhaler of breath or wheezing #8.5 grams azithromycin 250 mg tablet See Rx Instructions PO .COMPLEX #6 03/21/21 tabs codeine 10 mg-guaifenesin 100 mg/5 5 ml PO Q6H PRN cold symptoms #120 03/21/21 mL oral liquid (Guaifenesin AC) mL prednisone 20 mg tablet 40 mg (2 x 20 mg) PO DAILY rash 5 03/21/21 days #10 tabs albuterol sulfate 90 mcg/actuation 2 puff inhalation Q4-6H PRN 08/16/21 aerosol inhaler (Ventolin HFA) shortness of breath or wheezing #8.5 grams prednisone 50 mg tablet 50 mg PO DAILY 4 days #4 tabs 08/16/21 albuterol sulfate 90 mcg/actuation 2 puff inhalation Q4-6H PRN 11/18/21 aerosol inhaler (ProAir HFA) shortness of breath or wheezing #8.5 grams prednisone 20 mg tablet 60 mg (3 x 20 mg) PO DAILY 5 days 11/18/21 #15 tabs famotidine 20 mg tablet (Pepcid) 20 mg PO BID PRN epigastric pain 08/18/22 #60 tabs ondansetron 4 mg disintegrating 4 mg PO Q6H #14 tabs 08/18/22 tablet ibuprofen 600 mg tablet 600 mg PO TID PRN pain #14 tabs 08/20/22 docusate sodium 100 mg capsule 100 mg PO BID PRN constipation #30 01/12/24 (Colace) caps famotidine 20 mg tablet (Pepcid) 20 mg PO DAILY PRN abdominal 01/12/24 discomfort #30 tabs sennosides 8.6 mg tablet (senna) 8.6 mg PO BEDTIME PRN constipation 01/12/24 #30 tabs Allergies Allergy/AdvReac Type Severity Reaction Status Date / Time cat dander (CAT) Allergy Unknown PIMPLES Verified 12/12/24 19:02 dog dander (DOG) Allergy Unknown PIMPLES Verified 12/12/24 19:02 SEASONAL ALLERGIES Allergy Unknown ITCHY EYES Uncoded 12/12/24 19:02 Review of Systems Review of Systems: Yes all other systems are reviewed and are negative [facility] Past Medical History Medical History Asthma Social History Social History Alcohol intake: never Patient Tobacco Use Status: Current everyday Tobacco user Substance Use Type: Heroin Advance Directives: No Advance Directives Information Provided: No Physical Exam ED Vital Signs: Vital Signs - 24 hr 12/12/24 19:01 12/12/24 20:27 12/12/24 20:43 Temperature 96.8 F 97.6 F 97.6 F Pulse Rate 79 70 70 Respiratory Rate 20 16 16 Blood Pressure 153/76 H 116/76 116/76 Pulse Oximetry 98 99 99 Oxygen Delivery Method Room Air Room Air Room Air BMI result Body Mass Index 25.2 CONSTITUTIONAL: The patient appears non-toxic, well nourished and in no acute distress. Vital signs as documented. HEAD: Atraumatic, normocephalic. EYES: EOMs grossly intact, pupils equal, conjunctiva clear, no exudate. ENT: Nares patent, no discharge. Airway patent, no audible stridor, visible mucosa is pink and moist without noted lesions. NECK: trachea is midline, no obvious masses or gross abnormalities. CHEST: Symmetric movement, normal appearance. LUNGS: Non-labored work of breathing. CARDIAC: No evidence of hypoperfusion. ABDOMEN: Nondistended, no obvious injury. : Deferred. EXTREMITIES: There is a 7 mm non gaping laceration noted to the pad of the distal phalanx of the left index finger, hemostasis noted. Distal CSM intact. Moves all extremities spontaneously without reported pain. No obvious injury or deformity noted. NEURO: Alert and oriented x3, CN II-XII appear grossly intact. Cerebellar Functioning grossly intact. Speech clear and appropriate. SKIN: Warm, dry, color appropriate. No rashes or lesions noted. 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 Patient denies numbness/tingling. Patient to be evaluated any ED Medications Administered Discontinued Medications Generic Name Dose Route Start Last Admin Trade Name Freq PRN Reason Stop Dose Admin Diphtheria/Tetanus/Acell Pertussis 0.5 ml 12/12/24 20:26 12/12/24 20:39 Diphth,Pertus(Acell),Tet Adult 0.5 Ml Syringe IM 12/12/24 20:27 0.5 ml .ONCE ONE Administration Procedures Laceration Laceration 1: Site: hand Side (If applicable): left Size (cm): 0.7 Description: linear and clean Depth: simple, single layer Skin layer closed with: skin adhesive Technique: skin adhesive Medical Decision Making Medical Decision Making MDM Narrative: 8:30 PM 12/12/2024 (Radha MACIAS): Patient is a 29-year-old male presenting to the ED reporting just prior to arrival he was using a knife to cut open food packaging when he accidentally inflicted a laceration to the distal pad of his left index finger. Patient is right-hand dominant. The patient was able to control bleeding prior to arrival and presents to the ED for repair. The patient is unsure of his last tetanus shot. The patient denies distal paresthesias or impaired range of motion. Exam reveals a 7 mm non gaping laceration to the pad of the distal phalanx of the left index finger with a hemostasis noted. Distal CSM intact. Patient's laceration was repaired with Dermabond with good effect. Patient's finger placed in a splint to encourage favoring of the finger for the next few days to reduce risk of re-opening. Splint and laceration education provided. Tetanus updated. Discharge Plan Discharge Clinical Impression: Laceration of finger of left hand Patient Disposition: Home, Self-Care Instructions: Finger Laceration (ED), Skin Adhesive Care (ED) Additional Instructions: Thank you for choosing [facility] Emergency Department for your care today. Your laceration today appears noncomplicated. The laceration was repaired with skin adhesive, which should wear off with regular showering and hand washing in approximately 5-7 days. Please do not pick at the glue if begins to wear off. Please use the finger splint provided and attempt to avoid utilizing the finger for the next 2-3 days to reduce the risk of adhesive dislodgement and reopening of the wound. Do not apply bacitracin, lotions, or other emollients to the glue. Your tetanus vaccination was updated today. You may take alternating (staggered) doses of ibuprofen 600mg and Tylenol 1000mg every 4 hours as needed for any pain. Please follow up with the primary care provider for re-evaluation of your wound. If you do not have a primary care physician, please call the [facility] at [phone] to establish a new primary care physician. While waiting to establish your new primary care physician, you can call our [facility] at [phone] for non-emergency needs. Please return to the emergency department if you develop any uncontrollable bleeding, re-opening of your wound, redness advancing >1-2 cm away from your wound, or white milky discharge from your wound. Please also return if you experience any other new or worsening symptoms or concerns. Prescriptions: No Action hydroxyzine HCl 25 mg tablet 25 mg PO TID PRN (Reason: anxiety) Qty: 14 0RF Rx Instructions: This medication may cause drowsiness or use with caution albuterol sulfate 90 mcg/actuation HFA aerosol inhaler 1 inh inhalation QID PRN (Reason: shortness of breath or wheezing) Qty: 8.5 0RF azithromycin 250 mg tablet See Rx Instructions .ROUTE .COMPLEX Qty: 6 0RF Rx Instructions: take 500 mg today (day 1), then 250 mg for 4 days (days 2-5) codeine-guaifenesin [Guaifenesin AC] 10-100 mg/5 mL liquid 5 ml PO Q6H PRN (Reason: cold symptoms) Qty: 120 0RF prednisone 20 mg tablet 40 mg PO DAILY 5 Days Qty: 10 0RF albuterol sulfate [Ventolin HFA] 90 mcg/actuation HFA aerosol inhaler 2 puff inhalation Q4-6H PRN (Reason: shortness of breath or wheezing) Qty: 8.5 0RF prednisone 50 mg tablet 50 mg PO DAILY 4 Days Qty: 4 0RF prednisone 20 mg tablet 60 mg PO DAILY 5 Days Qty: 15 0RF albuterol sulfate [ProAir HFA] 90 mcg/actuation HFA aerosol inhaler 2 puff inhalation Q4-6H PRN (Reason: shortness of breath or wheezing) Qty: 8.5 0RF ondansetron 4 mg tablet,disintegrating 4 mg PO Q6H Qty: 14 0RF famotidine [Pepcid] 20 mg tablet 20 mg PO BID PRN (Reason: epigastric pain) Qty: 60 0RF ibuprofen 600 mg tablet 600 mg PO TID PRN (Reason: pain) Qty: 14 0RF sennosides [senna] 8.6 mg tablet 8.6 mg PO BEDTIME PRN (Reason: constipation) Qty: 30 0RF famotidine [Pepcid] 20 mg tablet 20 mg PO DAILY PRN (Reason: abdominal discomfort) Qty: 30 0RF docusate sodium [Colace] 100 mg capsule 100 mg PO BID PRN (Reason: constipation) Qty: 30 0RF Referrals: Mat Sung MD [Primary Care Provider, Internal Medicine] Clinical Impression: Laceration of finger of left hand Interventions: ED Discharge Assessment Last Done: 12/12/24 20:43 Discharge Date/Time: 12/12/24 20:43 Print Language: Indonesian
--- OUTSIDE RECORDS SUMMARY | 2024-12-12 19:50 | XMS_ITS | Clinical Summary ---
Author Organization [facility] Address [address] [place] [address] Care Team Providers Care Record Clerk Name Role Phone Unavailable Primary Care Provider Unavailabl e Source Comments PLEASE NOTE, if this patient is a minor, it may be UNLAWFUL to discuss sensitive information that is contained in these records (such as FAMILY PLANNING, MENTAL HEALTH or SUBSTANCE ABUSE) with the minor patient's parent or other person without the patient's specific authorization.[facility] Social History Tobacco Use Types Packs/Day Years Used Date Smoking Tobacco: Never Assessed Social Connections Answer Date Recorded Connectedness 0 11/23/2023 Financial Resource Strain Answer Date R ecorded Financial Resource Strain 0 2020 Stress Answer Date Recorded Stress 0 01/26/2021 Physical Activity Answer Date Recorded Physical Activity 0 01/26/2021 Food Insecurity Answer Date Recorded Food 0 12/07/2023 Transportation Needs Answer Date Record ed Transportation 0 01/26/2021 Housing Stability Answer Date Recorded Housing 0 01/26/2021 Safety and Environment Answer Date Norman rded Safety 0 01/26/2021 Utilities Answer Date Recorded Utilities 0 01/26/2021 Employment Answer Date Recorded Stress 0 11/23/2023 Sex and Gender Information Value Date Recorded Sex Assigned at Not on file Legal Sex Male 8:11 AM PST Gender Identity Not on file Sexual Orientation Not on file Plan of Treatment Not on file Insurance [facility] Member Subscriber Plan / Payer (Ef fective 2021-Present) Name:Chaparrita Addisonananda Relation to Subscriber:Self Name:Carlyn Addison Payer ID:[id number] Group ID:[id number] Type:Medicaid Address: [address] [address] [place] [address]
--- OUTSIDE RECORDS SUMMARY | 2024-12-12 19:50 | XMS_ITS ---
Author Name [facility] Organization Unknown Encounters Encounter Type Encounter Reason Primary Diagnosis Location Date Emergency Acute upper respiratory infection, unspecified Acute upper respiratory infection, unspecified [facility] 02/05/2023 Care Team Organization Name Specialty Phone Email Start Date End Juan Pablo law [facility] 04/02/2023 [facility] 02/05/2023 08/16/2024 [facility] 02/05/2023
--- OUTSIDE RECORDS SUMMARY | 2024-12-12 19:50 | XMS_ITS | Clinical Summary ---
Author Organization [facility] Address [address] [place] [address] Care Team Providers Care Patch Sander Name Role Phone Freddy Stevenson MD Primary Care Provider +1- [phone] Allergies No known active allergies Medications Medication Sig Dispensed Refills Start Date End Date Status albuterol (Ventolin HFA) 108 (90 Base) MCG/ACT inhaler Inhale 2 puffs into the lungs every 6 (six) hours as needed for wheezing. 0 Active Social History Tobacco Use Types Packs/Day Years Used Date Smoking Tobacco: Every Day Cigarettes Smokeless Tobacco: Current Tobacco Cessation:Ready to Q uit: Not Asked; Counseling Given: Not Answered Sex and Gender Information Value Date Recorded Sex Assigned at Male 02/05/2023 5:16 PM EST Gender Identity Not on file Sexual Orientation Not on file Job Start Date Occupation Industry Not on file Not on file Not on file Last Filed Vital Signs Vital Sign Reading Time Taken Comments Blood Pressure 124/67 02/05/2023 4:13 PM EST Pulse 85 02/05/2023 4:13 PM EST Temperature 37.2 C (99 F) 02/05/2023 4:13 PM EST Respiratory Rate 18 02/05/2023 4:13 PM EST Oxygen Saturation 97% 02/05/2023 4:13 PM EST Inhaled Oxygen Concentration - - Weight 51.3 kg (113 lb 3.2 oz) 02/05/2023 4:13 P M EST Height 160 cm (5' 3 ) 02/05/2023 4:13 PM EST Body Mass Index 20.05 02/05/2023 4:13 PM EST Plan of Treatment Not on file Care Teams Patch Sander Relationship Specialty Start Date End Date Freddy Stevenson MD [address] [facility] [address] [place] [id number] PCP - General Internal Medicine 02/05/23
[2024-12-12 20:27] VITALS: BP 116/76; PULSE 70; RESP 16; TEMP 36.4; O2SAT 99
[2024-12-12] MEDS: Diphth,Pertus(ACell),Tet Adult 0.5 ML SYRINGE IM (20:39)
[2024-12-12 20:43] VITALS: BP 116/76; PULSE 70; RESP 16; TEMP 36.4; O2SAT 99
== END 2024-12-12 20:43 | disposition home or self-care (01) ==
PROVIDERS: Emergency Provider Emergency Medicine Emergency Medical Services; PCP Internal Medicine
DX: S61.211A Laceration without foreign body of left index finger without damage to nail, initial encounter (principal); M79.645 Pain in left finger(s); W26.0XXA Contact with knife, initial encounter; Y93.9 Activity, unspecified; Y92.9 Unspecified place or not applicable; Y99.8 Other external cause status; Z23 Encounter for immunization
CPT/HCPCS: 12001; 90471; 90715; 99283; 99284

== ENCOUNTER 2025-01-21 03:16 | Emergency (ER) | payer OTHER, SELFPAY ==
--- NOTE | ~2025-01-21 | XR_ITS ---
CLINICAL HISTORY: chest pain sob 2 view chest x-ray Comparison: CR/SR - XR CHEST 2 VIEWS - 06/09/23 04:37 EDT Findings: There is a new small focal density at the right mid peripheral lung overlying the anterior right 4th rib. Heart size is normal. No acute fracture. No effusion. IMPRESSION: New focal opacity at the right mid lung. This could be a small early pneumonia. Recommend follow-up to clearing. This document has been electronically signed by: Fabiana Hussein MD on 01/21/2025 04:43:44
--- NOTE | 2025-01-21 03:18 | ECG_ITS ---
Test Reason : CHEST PAIN Blood Pressure : */* mmHG Vent. Rate : 89 BPM Atrial Rate : 89 BPM P-R Int : 166 ms QRS Dur : 102 ms QT Int : 350 ms P-R-T Axes : 76 36 55 degrees QTcB Int : 425 ms Normal sinus rhythm Incomplete right bundle branch block Borderline ECG When compared with ECG of 03-Jan-2023 13:53, No significant change was found Referred By: Generic ED Physician Electronically Signed By: LOBO YARBROUGH MD
[2025-01-21 03:22] VITALS: BP 133/61; PULSE 90; RESP 20; TEMP 36.3; O2SAT 95; BMI 25.2
[2025-01-21 03:31] VITALS: BP 133/61; PULSE 90; RESP 20; TEMP 36.3; O2SAT 95
--- NOTE | 2025-01-21 03:34 | ED_ITS ---
HPI - Chest Pain General Chief Complaint: Chest Pain Stated Complaint: cp started this morning + sob Time Seen by Provider: 01/21/25 03:34 Source: patient Mode of arrival: ambulatory Limitations: no limitations History of Present Illness ED Provider: Dr. Evelyn Batista HPI narrative: 29-year-old male with a history of asthma presenting with substernal chest pain, shortness of breath and cough productive of brown sputum ongoing for the last couple of hours. Admits he has been using his inhaler tonight without any improvement in symptoms. Pain woke him from sleep tonight. Admits that he has had similar episodes in the past but has not taken anything for pain. No reported fever. No known sick contacts or travel. Denies nausea or vomiting. No extremity swelling or pain. No rashes. He has a sore in the inside of his cheek where he thinks he might have bit his mouth with his wisdom teeth. No current bleeding. No recent antibiotic or steroid use. Patient is a current smoker. Related Data Previous Rx's ?Medication ?Instructions ?Recorded hydroxyzine HCl 25 mg tablet 25 mg PO TID PRN anxiety #14 tabs 10/28/20 albuterol sulfate 90 mcg/actuation 1 inh inhalation QI D PRN shortness 03/21/21 aerosol inhaler of breath or wheezing #8.5 g gosia azithromycin 250 mg tablet See Rx Instructions PO .COM PLEX #6 03/21/21 tabs codeine 10 mg-guaifenesin 100 mg/5 5 ml PO Q6H PRN col d symptoms #120 03/21/21 mL oral liquid (Guaifenesin AC) mL prednisone 20 mg tablet 40 mg (2 x 20 mg) PO DAILY r sydnie 5 03/21/21 days #10 tabs albuterol sulfate 90 mcg/actuation 2 puff inhalation Q 4-6H PRN 08/16/21 aerosol inhaler (Ventolin HFA) shortness of breath or wheezing #8.5 grams prednisone 50 mg tablet 50 mg PO DAILY 4 days #4 tab s 08/16/21 albuterol sulfate 90 mcg/actuation 2 puff inhalation Q 4-6H PRN 11/18/21 aerosol inhaler (ProAir HFA) shortness of breath or wh eezing #8.5 grams prednisone 20 mg tablet 60 mg (3 x 20 mg) PO DAILY 5 days 11/18/21 #15 tabs famotidine 20 mg tablet (Pepcid) 20 mg PO BID PRN epig astric pain 08/18/22 #60 tabs ondansetron 4 mg disintegrating 4 mg PO Q6H #14 tabs 0 08/18/22 tablet ibuprofen 600 mg tablet 600 mg PO TID PRN pain #14 t abs 08/20/22 docusate sodium 100 mg capsule 100 mg PO BID PRN const ipation #30 01/12/24 (Colace) caps famotidine 20 mg tablet (Pepcid) 20 mg PO DAILY PRN ab dominal 01/12/24 discomfort #30 tabs sennosides 8.6 mg tablet (senna) 8.6 mg PO BEDTIME PRN constipation 01/12/24 #30 tabs azithromycin 250 mg tablet 250 mg PO DAILY 4 days #4 t abs 01/21/25 prednisone 50 mg tablet 50 mg PO DAILY 5 days #5 tab s 01/21/25 Allergies Allergy/AdvReac Type Severity Reaction Status Date / Time cat dander (CAT) Allergy Unknown PIMPLES Verified 01/21/25 03:26 dog dander (DOG) Allergy Unknown PIMPLES Verified 01/21/25 03:26 SEASONAL ALLERGIES Allergy Unknown ITCHY EYES Uncoded 01/21/25 03:26 Review of Systems 2 Review of Systems: As per HPI, full review of systems performed and negative but for the above mentioned pertinent positives and negatives. [facility] Past Medical History Medical History Asthma Social History Social History Alcohol intake: never Patient Tobacco Use Status: Current everyday Tobacco user Substance Use Type: Heroin Physical Exam 2 Exam: Exam: GENERAL: Ill-Appearing, appears uncomfortable. SKIN: Normal skin color for ethnicity, warm, dry, no rashes noted. HEENT: Normocephalic, atraumatic, no stridor, dry mucous membranes, dentition intact, EOMI, PERRLA. NECK: Soft, supple, full ROM, midline structures nontender, no step-offs, no deformities, no lymphadenopathy. CHEST: Heart regular rhythm, no murmurs, symmetric chest rise and fall. PULMONARY: Coarse lung sounds bilaterally, diminished at the bases, no labored breathing, faint expiratory wheeze bilaterally. ABDOMINAL: Soft, nondistended, nontender, positive bowel sounds in all quadrants. : Deferred. MUSCULOSKELETAL: Normal tone, full range of motion, no deformities, no peripheral edema. NEURO: Alert and oriented x3, CN II through XII intact, equal strength and sensation bilateral upper and lower extremities, no focal neurologic deficits. PSYCHIATRIC: Flat affect, fluid speech, good eye contact and appropriate demeanor. Vital Signs: Vital Signs: Last Vital Signs Temp 98.3 F 01/21/25 06:43 Pulse 99 01/21/25 06:43 Resp 16 01/21/25 06:43 BP 136/65 01/21/25 06:43 Pulse Ox 97 01/21/25 06:43 O2 Del Method Room Air 01/21/25 06:43 BMI result Body Mass Index 25.2 Medications Administered Discontinued Medications Generic Name Dose Route Start Last Admin Trade Name Freq PRN Reason Stop Dose Admin Albuterol Sulfate 2.5 mg/ 5 mg 01/21/25 06:13 01/21/25 06:14 Albuterol Sulfate 2.5 mg INHALE 01/21/25 06:14 5 mg ONCE ONE Administration Azithromycin 500 mg 01/21/25 05:36 01/21/25 05:41 Azithromycin 500 Mg Tablet PO 01/21/25 05:37 500 mg ONCE ONE Administration Prednisone 50 mg 01/21/25 05:36 01/21/25 05:41 Prednisone 10 Mg Tablet PO 01/21/25 05:37 50 mg ONCE ONE Administration Medical Decision Making Medical Decision Making [facility] Narrative: Patient presents today with flu-like symptoms. Differential diagnosis includes influenza, coronavirus, pneumonia, upper respiratory infection, among others. Most importantly, this patient is not in any acute respiratory distress. They have normal oxygen levels at room air. He received an albuterol treatment here in the emergency department as well as steroids and azithromycin for what appears to be an atypical pneumonia. I have discussed medication and other home therapies that will help the patient and have discussed strict return precautions. Instructed that symptoms may worsen and the patient might need re-evaluation or even hospitalization in the future, but did not show signs of this at the time of discharge. Differential Diagnosis Differential Diagnoses: The differential diagnosis associated with the presentation includes (as above) Admission/Observation Consideration of admission/observation: Escalation of care including admission/observation considered Lab Data MDM Lab Attestation statement: I reviewed the patient's lab results. 01/21/25 03:36 01/21/25 03:36 Labs: Lab Results 01/21/25 Range/Units 03:36 WBC 8.3 (4.8-10.8) X10*3/uL RBC 5.78 (4.60-5.80) X10*6/uL Hgb 15.0 (14.0-18.0) g/dl Hct 45.5 (42.0-52.0) % MCV 78.7 L (80.0-98.0) fL MCH 26.0 L (27.0-33.0) pg MCHC 33.0 (31.0-36.0) g/dl RDW 13.0 (11.0-16.0) % Plt Count 211 (160-400) X10*3/uL MPV 10.8 (9.4-12.4) fL Immature Gran % (Auto) 0.2 (0.0-0.4) % Neut % (Auto) 55.9 (45-73) % Lymph % (Auto) 23.6 (20-40) % [place] % (Auto) 10.1 (2-11) % Eos % (Auto) 9.8 H (0-4) % Baso % (Auto) 0.4 (0-2) % Lymph # (Auto) 2.0 (1.2-4.9) X10*3/uL [place] # (Auto) 0.8 (0.1-1.2) X10*3/uL Eos # (Auto) 0.8 H (0.0-0.4) X10*3/uL Baso # (Auto) 0.0 (0.0-0.2) X10*3/uL Abs Immat Gran (auto) 0.02 (0.00-0.03) X10*3/uL Absolute Neuts (auto) 4.6 (2.0-8.3) x10*3/uL Absolute Nucleated RBC 0.000 (0.0-0.012) X10*3/uL Nucleated RBC % (auto) 0.0 (0.0-0.2) /100WBC Sodium 139 (135-145) mmol/L Potassium 3.5 (3.3-5.1) mmol/L Chloride 111 H (96-108) mmol/L Carbon Dioxide 19 L (22-29) mmol/L Anion Gap 13 (12-20) BUN 12 (9-16) mg/dL Creatinine 0.90 (0.5-1.4) mg/dL Estim Creat Clear Calc 99.2 Estimated GFR > 60 Random Glucose 101 (60-115) mg/dL Calcium 9.2 D (8.4-10.2) mg/dL Total Bilirubin 0.6 (0.0-1.0) mg/dL AST 21 (5-37) U/L ALT 14 (0-40) U/L Alkaline Phosphatase 56 (39-117) U/L Troponin I High Sens 7.2 D (<3.5-35.0) ng/L Total Protein 6.7 (6.5-8.0) g/dL Albumin 4.2 (3.5-5.0) g/dL Influenza Type A (PCR) NEGATIVE (Negative) Influenza Type B (PCR) NEGATIVE (Negative) RSV RNA Qual (PCR) NEGATIVE (Negative) SARS-CoV-2 RNA (RT-PCR) NEGATIVE (Negative) Independent Interpretation I performed an independent interpretation of an: EKG Interpretation: My independent interpretation of the ECG reveals normal sinus rhythm with rate of 89, normal axis, right bundle branch block, no ST elevations or depressions to suggest ischemic changes, relatively unchanged from previous on 01/03/2023. Radiology Impression Discussion of test interpretation with radiology: I have reviewed the radiologist's reading. Radiologist Impression: 2 view chest x-ray Comparison: CR/SR - XR CHEST 2 VIEWS - 06/09/23 04:37 EDT Findings: There is a new small focal density at the right mid peripheral lung overlying the anterior right 4th rib. Heart size is normal. No acute fracture. No effusion. IMPRESSION: New focal opacity at the right mid lung. This could be a small early pneumonia. Recommend follow-up to clearing. External Record Review External record reviewed: Inpatient record Prescription Management I considered prescription management with: Antibiotic and Other (Steroids) Chronic Conditions Patient?s care impacted by: Other (Asthma) Social Determinants Patient?s care significantly limited by Social Determinants of Health including: Other Social Determinant of Health Discharge Plan Discharge Clinical Impression: Community acquired pneumonia, Acute asthma exacerbation, Cough with sputum, Tobacco use, Acute chest pain Patient Disposition: Home, Self-Care Instructions: Community Acquired Pneumonia (ED), Chronic Lung Disease and Infection Prevention (ED) Additional Instructions: Take your antibiotic and steroid as prescribed until the course is completed. Do not stop this medication early if you start to feel better. Return to the emergency department with any new or worsening symptoms including: Worsening chest pain, fevers greater than 100? despite antibiotic treatment, vomiting, worsening shortness of breath, or any new symptom that concerns you. Call 911 with any medical emergency. Prescriptions: New azithromycin 250 mg tablet 250 mg PO DAILY 4 Days Qty: 4 0RF prednisone 50 mg tablet 50 mg PO DAILY 5 Days Qty: 5 0RF No Action hydroxyzine HCl 25 mg tablet 25 mg PO TID PRN (Reason: anxiety) Qty: 14 0RF Rx Instructions: This medication may cause drowsiness or use with caution albuterol sulfate 90 mcg/actuation HFA aerosol inhaler 1 inh inhalation QID PRN (Reason: shortness of breath or wheezing) Qty: 8.5 0RF azithromycin 250 mg tablet See Rx Instructions .ROUTE .COMPLEX Qty: 6 0RF Rx Instructions: take 500 mg today (day 1), then 250 mg for 4 days (days 2-5) codeine-guaifenesin [Guaifenesin AC] 10-100 mg/5 mL liquid 5 ml PO Q6H PRN (Reason: cold symptoms) Qty: 120 0RF prednisone 20 mg tablet 40 mg PO DAILY 5 Days Qty: 10 0RF albuterol sulfate [Ventolin HFA] 90 mcg/actuation HFA aerosol inhaler 2 puff inhalation Q4-6H PRN (Reason: shortness of breath or wheezing) Qty: 8.5 0RF prednisone 50 mg tablet 50 mg PO DAILY 4 Days Qty: 4 0RF prednisone 20 mg tablet 60 mg PO DAILY 5 Days Qty: 15 0RF albuterol sulfate [ProAir HFA] 90 mcg/actuation HFA aerosol inhaler 2 puff inhalation Q4-6H PRN (Reason: shortness of breath or wheezing) Qty: 8.5 0RF ondansetron 4 mg tablet,disintegrating 4 mg PO Q6H Qty: 14 0RF famotidine [Pepcid] 20 mg tablet 20 mg PO BID PRN (Reason: epigastric pain) Qty: 60 0RF ibuprofen 600 mg tablet 600 mg PO TID PRN (Reason: pain) Qty: 14 0RF sennosides [senna] 8.6 mg tablet 8.6 mg PO BEDTIME PRN (Reason: constipation) Qty: 30 0RF famotidine [Pepcid] 20 mg tablet 20 mg PO DAILY PRN (Reason: abdominal discomfort) Qty: 30 0RF docusate sodium [Colace] 100 mg capsule 100 mg PO BID PRN (Reason: constipation) Qty: 30 0RF Interventions: ED Discharge Assessment Last Done: 01/21/25 06:43 Discharge Date/Time: 01/21/25 06:43 Print Language: Senegalese
--- OUTSIDE RECORDS SUMMARY | 2025-01-21 03:40 | XMS_ITS | Clinical Summary ---
Author Organization [facility] Address [address] [place] [address] Care Team Providers Care Commercial Estimator Name Role Phone Unavailable Primary Care Provider [...] Plan of Treatment Not on file Insurance [facility] Member Subscriber Plan / Payer (Ef fective 2021-Present) Name:Chaparrita Addisonananda Relation to Subscriber:Self Name:Carlyn Addison Payer ID:[id number] Group ID:[id number] Type:Medicaid Address: [address] [address] [place] [address]
[2025-01-21 03:42] LABS: Hematocrit 45.5 % (42.0-52.0); Hemoglobin 15.0 g/dl (14.0-18.0); Imm Gran Abs Auto 0.02 X10*3/uL (0.00-0.03); Imm Gran Pct Auto 0.2 % (0.0-0.4); Lymphocytes Absolute Auto 2.0 X10*3/uL (1.2-4.9); MANUAL DIFF FLAG NO; Mean Corpuscular HGB Conc 33.0 g/dl (31.0-36.0); Mean Corpuscular Hemoglobin 26.0 pg (27.0-33.0); Mean Corpuscular Volume 78.7 fL (80.0-98.0); NRBC Abs Auto 0.000 X10*3/uL (0.0-0.012); NRBC Pct Auto 0.0 /100WBC (0.0-0.2); Platelet Count 211 X10*3/uL (160-400); Red Blood Count 5.78 X10*6/uL (4.60-5.80); White Blood Count 8.3 X10*3/uL (4.8-10.8)
[2025-01-21 03:55] LABS: Alanine Aminotransferase 14 U/L (0-40); Albumin Level 4.2 g/dL (3.5-5.0); Alkaline Phosphatase 56 U/L (39-117); Anion Gap 13 (12-20); Aspartate Amino Transferase 21 U/L (5-37); Blood Urea Nitrogen 12 mg/dL (9-16); Calcium 9.2 mg/dL (8.4-10.2); Carbon Dioxide 19 mmol/L (22-29); Chloride 111 mmol/L (96-108); Creatinine Clr Calc Pharmacy 99.2; Estimated Glomerular Filt Rate > 60; Potassium 3.5 mmol/L (3.3-5.1); Sodium 139 mmol/L (135-145); Total Protein 6.7 g/dL (6.5-8.0)
[2025-01-21 04:01] LABS: Troponin-I High Sensitivity 7.2 ng/L (<3.5-35.0)
[2025-01-21 04:18] LABS: Resp Syncy Virus RNA Qual PCR NEGATIVE (Negative); SARS COV2 PCR INHOUSE NEGATIVE (Negative)
[2025-01-21] MEDS: Albuterol Sulfate 2.5 MG, Albuterol Sulfate (0.083%) 2.5 MG 5 MG INHALE (06:14)
[2025-01-21 06:18] VITALS: PULSE 88; RESP 18; O2SAT 97
[2025-01-21 06:33] VITALS: BP 136/65; PULSE 99; RESP 16; TEMP 36.8; O2SAT 97
[2025-01-21 06:43] VITALS: BP 136/65; PULSE 99; RESP 16; TEMP 36.8; O2SAT 97
== END 2025-01-21 06:43 | disposition home or self-care (01) ==
PROVIDERS: Emergency Provider Emergency Medicine; PCP Internal Medicine
DX: J18.9 Pneumonia, unspecified organism (principal); J45.901 Unspecified asthma with (acute) exacerbation; R05.8 Other specified cough; R07.9 Chest pain, unspecified; Z03.818 Encounter for observation for suspected exposure to other biological agents ruled out; I45.10 Unspecified right bundle-branch block; R06.02 Shortness of breath; F17.200 Nicotine dependence, unspecified, uncomplicated; Z71.6 Tobacco abuse counseling
CPT/HCPCS: 71046; 80053; 84484; 85025; 87637; 93005; 94640; 99284; 99285

== ENCOUNTER → 2025-01-21 03:18 | Outpatient (BNV) | payer OTHER, SELFPAY | PROVIDERS: Emergency Provider Emergency Medicine; PCP Internal Medicine; Visit Provider Internal Medicine Cardiovascular Disease | DX: I45.10 Unspecified right bundle-branch block (principal) | CPT/HCPCS: 93010 ==

== ENCOUNTER → 2025-01-21 03:45 | Outpatient (BNV) | payer OTHER, SELFPAY | PROVIDERS: Emergency Provider Emergency Medicine; PCP Internal Medicine; Visit Provider Radiology Diagnostic Radiology | DX: R91.8 Other nonspecific abnormal finding of lung field (principal) | CPT/HCPCS: 71046 ==

== ENCOUNTER 2025-02-25 16:50 | Emergency (ER) | payer OTHER, SELFPAY ==
--- OUTSIDE RECORDS SUMMARY | 2025-02-25 20:35 | XMS_ITS | Clinical Summary ---
Author Organization [facility] Prior to 08/10/24 Address [address] [place] [address] Care Team Providers Care Risk And Insurance Consultant Name Role Phone Freddy Stevenson MD Primary Care Provider +1- [phone] Allergies No known active allergies Medications Medication [...] of Treatment Not on file Care Teams Risk And Insurance Consultant Relationship Specialty Start Date End Date Freddy Stevenson MD [address] [facility] [address] [place] [id number] PCP - General Internal Medicine 02/05/23
== END 2025-02-25 20:06 | disposition left against medical advice (07) ==
PROVIDERS: Emergency Provider Emergency Medicine
DX: R51.9 Headache, unspecified (principal); Z53.21 Procedure and treatment not carried out due to patient leaving prior to being seen by health care provider